=== PATIENT | female | born 1955 | race Hispanic/Latino ===

== ENCOUNTER → 2023-03-11 | Emergency (ER) | payer OTHER, SELFPAY ==
--- OUTSIDE RECORDS SUMMARY | 2023-03-11 11:13 | XMS REPORT | Continuity of Care Document ---
Author Name Unknown Address [address] [facility] [address] [place] [address] [facility] thconnect Address [address] [facility] [address] [place] [address] Care Team Providers Care [place] Name Role Phone RAMO ROBERTSON Primary Care Physician UnavailRamo Michelle Attending Clinician Unavailable [email or web address]_Kadiyala_S Attending Clinician Unavailyoel jones RADIOLOGY Attending Clinician Unavailable Radiology Attending Clinician Unavailable Flora Murray MD Attending Clinician + [phone] Elizabeth George RN Attending Clinician Unavailsandra stephens Doctor Unassigned, [place] Attending Clinician U navailable Pob, [facility] Main Attending Clinician UnavailVinita Duong DPM Attending Clinician [phone] VINITA GREENWOOD Attending Clinician Unavailable Tremaine Torres Attending Clinician [phone] TREMAINE PATTON Attending Clinician Unavailable Shaan Mayberry MD Attending Clinician [phone] ROSALINA DORANTES Attending Clinician UnavailRosalina Espinal MD Attending Clinician [phone] SHAAN MAYBERRY Attending Clinician Unavail able SHAAN MAYBERRY Attending Clinician Unavail able Lab, Ang - Db Attending Clinician Unavailable JELANI RESENDEZ Attending Clinician UnavailJelani Rdz MD Attending Clinician BENI STEVEN Attending Clinician Unavailable Beni Bianchi Attending Clinician [phone] FLORA MURRAY Attending Clinician JELANI Carrasco Attending Clinician Unavailsandra Lira, [facility] Health Maintenance Attending ALIREZA Connolly Attending Clinician Unavailable Yamil Patton Attending Clinician [phone] HUANG CHAVIS Attending Clinician Unavailable Huang Chavis MD Attending Clinician [phone] ([facility]), ANG-DB EMG/NCV TESTING Attending Jelani Salas MD Attending Clinician +- [phone] JELANI SAM Attending Clinician Alireza Yeboah MD Attending Clinician [phone] [facility] Uro Procedure Attending Clinician GWEN Wilson Attending Clinician Unavailable JELANI JOSHI Attending Clinician UnavailIRAJ Manzo Attending Clinician UnavailPRO Rock Attending Clinician Unavailable GC_GCBZW_Kadiyala_S Admitting Clinician UnavailTONE Hawkins Admitting Clinician UnavailDANIELLE Kingsley Admitting Clinician UnavailRAMO Michelle Admitting Clinician Unavailable ROSALINA DORANTES Admitting Clinician UnavailBENI Cisneros Admitting Clinician Unavailable FLORA MURRAY Admitting Clinician Vazquez sharma Payers Payer Name Policy Type Policy Number Effective Date Expirati on Date Source [facility] [place] - [place] - [place] - [place] - [place]MEDICARE REPLACEMENT/ADVANT AGE - HMO) [id number] [place] [id number] [facility] [id number] 2022 00:00:00 [place] [id number] 2022 00:00:00 Problems Condition Name Condition Details Condition Category Status Onset Date Resolution Date Last Treatment Date Treating Clinician Comments Source Rectal bleeding Rectal bleeding Disease Active 07-02 00:00: 00 [facility] Protein-ca justina malnutriti on, moderate Protein-ca justina malnutriti on, moderate Disease Active 2017-0 5-26 00:00: 00 [facility] 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 10-30 00:00: 00 [facility] Dry eye syndrome Dry eye syndrome Disease Active 10-30 00:00: 00 [facility] Melanosis Melanosis Disease Active 10-30 00:00: 00 [facility] Conjunctiv al melanosis; Rt eye > Lt Eye Conjunctiv al melanosis; Rt eye > Lt Eye Disease Active 10-30 00:00: 00 [facility] Lumbago Lumbago Disease Active 08-24 00:00: 00 [facility] Other problems of limbs Other problems of limbs Disease Active 08-24 00:00: 00 Overview: Formattin g of this note might be different from the original. Left leg gave out, pain in hands and left leg [facility] Pain in joint, hand Pain in joint, hand Disease Active 08-24 00:00: 00 [facility] Other general symptoms(7 80.99) Other general symptoms(7 80.99) Disease Active 08-24 00:00: 00 Overview: Formattin g of this note might be different from the original. Pain in left side [facility] Abnormalit y of gait Abnormalit y of gait Disease Active 08-24 00:00: 00 [facility] Lack of coordinati on Lack of coordinati on Disease Active 08-24 00:00: 00 [facility] Essential hypertensi on Hypertensi on, unspecifie d type Problem [facility] Hypokalemi a Hypokalemi a Problem [facility] Hyperlipid aemia Hyperlipid emia, unspecifie d hyperlipid emia type Problem [facility] [id number] Mixed hyperlipid emia Problem [facility] [id number] Adult BMI <19 kg/sq m Problem [facility] [id number] Dental caries extending into pulp Problem [facility] [id number] Weight loss, non-intent ional Problem [facility] [id number] Acute lower UTI Problem [facility] [id number] 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 [facility] [id number] Intrinsic sphincter deficiency (ISD) Problem [facility] [id number] Abnormal finding on breast imaging Problem [facility] [id number] Pre-proced ure lab exam Problem [facility] [id number] Pain of right breast Problem [facility] [id number] Cyst of right breast Problem [facility] Incontinen ce Incontinen ce Problem [facility] [id number] Urinary incontinen ce, unspecifie d type Problem [facility] [id number] Chronic pain syndrome Problem [facility] Multiple sclerosis Multiple sclerosis Problem [facility] Allergies, Adverse Reactions, Alerts Allergy Name Allergy Type Status Severity Reaction(s) Onset Date Inactive Date Treating Clinician Comments Source NO KNOWN ALLERGIE S Drug Class Active [facility] Social History Social Habit Start Date Stop Date Quantity Comments Source Gender identity [facility] Sexual orientation [facility] History of tobacco use Cigarette Smoker [facility] Sex Assigned At [facility] Alcohol intake 2022-09-16 00:00:00 2022-09-16 00:00:00 Current non-drinker of alcohol (finding) [facility] Exposure to SARS-CoV-2 (event) 2022-05-23 00:00:00 2022-06-02 07:22:00 Not sure [facility] History of Social function 2022-04-19 00:00:00 2022-04-19 00:00:00 [facility] Cigarettes smoked current (pack per day) - Reported 2021-09-14 00:00:00 2021-09-14 00:00:00 [facility] Cigarette pack-years 2021-09-14 00:00:00 2021-09-14 00:00:00 [facility] Tobacco use and exposure 2021-09-14 00:00:00 2021-09-14 00:00:00 Smokeless tobacco non-user [facility] Smoking Status Start Date Stop Date Source Unknown if ever smoked [facility]mo n [facility] Ex-smoker 2021-09-14 00:00:00 2021-09-14 00:00[facility]00 [facility] tobacco daily 2021-03-10 00:00:00 [facility] Medications Ordered Medication Name Filled Medication Name Start Date Stop Date Current Medication? Ordering Clinician Indication Dosage Frequency Signature (SIG) Comments Components Source ROSUVASTATI N 10 mg tablet 2022-02 00:00: 00 Yes TAKE 1 TABLET BY MOUTH EVERY MORNING [facility] ROSUVASTATI N 10 mg tablet 2022-02 00:00: 00 Yes TAKE 1 TABLET BY MOUTH EVERY MORNING [facility] ROSUVASTATI N 10 mg tablet 2022-02 00:00: 00 Yes TAKE 1 TABLET BY MOUTH EVERY MORNING [facility] ROSUVASTATI N 10 mg tablet 2022-02 00:00: 00 Yes TAKE 1 TABLET BY MOUTH EVERY MORNING [facility] ROSUVASTATI N 10 mg tablet 2022-02 00:00: 00 Yes TAKE 1 TABLET BY MOUTH EVERY MORNING [facility] ROSUVASTATI N 10 mg tablet 0 10-14 00:00: 00 Yes TAKE 1 TABLET BY MOUTH EVERY MORNING [facility] ROSUVASTATI N 10 mg tablet 2022-0 10-14 00:00: 00 Yes TAKE 1 TABLET BY MOUTH EVERY MORNING [facility] ROSUVASTATI N 10 mg tablet 0 10-14 00:00: 00 Yes TAKE 1 TABLET BY MOUTH EVERY MORNING [facility] ROSUVASTATI N 10 mg tablet 2022-0 10-14 00:00: 00 Yes TAKE 1 TABLET BY MOUTH EVERY MORNING [facility] ROSUVASTATI N 10 mg tablet 2022-0 10-14 00:00: 00 11-08 00:00 :00 No TAKE 1 TABLET BY MOUTH EVERY MORNING [facility] ROSUVASTATI N 10 mg tablet 09-13 00:00: 00 Yes TAKE 1 TABLET BY MOUTH EVERY MORNING [facility] ROSUVASTATI N 10 mg tablet 09-13 00:00: 00 Yes TAKE 1 TABLET BY MOUTH EVERY MORNING [facility] ROSUVASTATI N 10 mg tablet 09-13 00:00: 00 Yes TAKE 1 TABLET BY MOUTH EVERY MORNING [facility] ROSUVASTATI N 10 mg tablet 09-13 00:00: 00 Yes TAKE 1 TABLET BY MOUTH EVERY MORNING [facility] ROSUVASTATI N 10 mg tablet 09-13 00:00: 00 Yes TAKE 1 TABLET BY MOUTH EVERY MORNING [facility] ROSUVASTATI N 10 mg tablet 09-13 00:00: 00 Yes TAKE 1 TABLET BY MOUTH EVERY MORNING [facility] ROSUVASTATI N 10 mg tablet 09-13 00:00: 00 10-14 00:00 :00 No TAKE 1 TABLET BY MOUTH EVERY MORNING [facility] baclofen 10 mg tablet 09-10 15:36: 02 09-10 00:00 :00 No 10mg Take 10 mg by mouth 3 (three) times daily. [facility] gabapentin 600 mg tablet 09-10 00:00: 00 Yes [id number] 600mg Take 1 tablet by mouth in the morning and 1 tablet at noon and 1 tablet in the evening. [facility] ofatumumab (KESIMPTA PEN) 20 mg/0.4 mL PnIj 09-10 00:00: 00 Yes [id number] 20mg inject 20 mg under the skin once every month. [facility] baclofen 10 mg tablet 09-10 00:00: 00 Yes [id number] 10mg Take 1 tablet by mouth in the morning and 1 tablet at noon and 1 tablet in the evening. [facility] gabapentin 600 mg tablet 09-10 00:00: 00 Yes [id number] 600mg Take 1 tablet by mouth in the morning and 1 tablet at noon and 1 tablet in the evening. [facility] ofatumumab (KESIMPTA PEN) 20 mg/0.4 mL PnIj 2023-0 8- 00:00: 00 Yes [id number] 20mg inject 20 mg under the skin once every month. [facility] baclofen 10 mg tablet 2022-0 8- 00:00: 00 Yes [id number] 10mg Take 1 tablet by mouth in the morning and 1 tablet at noon and 1 tablet in the evening. [facility] gabapentin 600 mg tablet 2022-0 8- 00:00: 00 Yes [id number] 600mg Take 1 tablet by mouth in the morning and 1 tablet at noon and 1 tablet in the evening. [facility] ofatumumab (KESIMPTA PEN) 20 mg/0.4 mL PnIj 3-0 8- 00:00: 00 Yes [id number] 20mg inject 20 mg under the skin once every month. [facility] baclofen 10 mg tablet 2022-0 8- 00:00: 00 Yes [id number] 10mg Take 1 tablet by mouth in the morning and 1 tablet at noon and 1 tablet in the evening. [facility] gabapentin 600 mg tablet 2022-0 8- 00:00: 00 Yes [id number] 600mg Take 1 tablet by mouth in the morning and 1 tablet at noon and 1 tablet in the evening. [facility] ofatumumab (KESIMPTA PEN) 20 mg/0.4 mL PnIj 3-0 8- 00:00: 00 Yes [id number] 20mg inject 20 mg under the skin once every month. [facility] baclofen 10 mg tablet 2022-0 8- 00:00: 00 Yes [id number] 10mg Take 1 tablet by mouth in the morning and 1 tablet at noon and 1 tablet in the evening. [facility] gabapentin 600 mg tablet 3-0 8- 00:00: 00 Yes [id number] 600mg Take 1 tablet by mouth in the morning and 1 tablet at noon and 1 tablet in the evening. [facility] ofatumumab (KESIMPTA PEN) 20 mg/0.4 mL PnIj 2023-0 8-04 00:00: 00 Yes [id number] 20mg inject 20 mg under the skin once every month. [facility] baclofen 10 mg tablet 2022-0 8- 00:00: 00 Yes [id number] 10mg Take 1 tablet by mouth in the morning and 1 tablet at noon and 1 tablet in the evening. [facility] gabapentin 600 mg tablet 2022-0 8- 00:00: 00 Yes [id number] 600mg Take 1 tablet by mouth in the morning and 1 tablet at noon and 1 tablet in the evening. [facility] ofatumumab (KESIMPTA PEN) 20 mg/0.4 mL PnIj 3-0 8- 00:00: 00 Yes [id number] 20mg inject 20 mg under the skin once every month. [facility] baclofen 10 mg tablet 2022-0 8- 00:00: 00 Yes [id number] 10mg Take 1 tablet by mouth in the morning and 1 tablet at noon and 1 tablet in the evening. [facility] gabapentin 600 mg tablet 2022-0 - 00:00: 00 Yes [id number] 600mg Take 1 tablet by mouth in the morning and 1 tablet at noon and 1 tablet in the evening. [facility] ofatumumab (KESIMPTA PEN) 20 mg/0.4 mL PnIj 2022-0 09-10 00:00: 00 Yes [id number] 20mg inject 20 mg under the skin once every month. [facility] baclofen 10 mg tablet 2022-0 - 00:00: 00 Yes [id number] 10mg Take 1 tablet by mouth in the morning and 1 tablet at noon and 1 tablet in the evening. [facility] gabapentin 600 mg tablet 3-0 8-04 00:00: 00 Yes [id number] 600mg Take 1 tablet by mouth in the morning and 1 tablet at noon and 1 tablet in the evening. [facility] ofatumumab (KESIMPTA PEN) 20 mg/0.4 mL PnIj 3-0 8-04 00:00: 00 Yes [id number] 20mg inject 20 mg under the skin once every month. [facility] baclofen 10 mg tablet 3-0 8-04 00:00: 00 Yes [id number] 10mg Take 1 tablet by mouth in the morning and 1 tablet at noon and 1 tablet in the evening. [facility] gabapentin 600 mg tablet 2022-0 8 00:00: 00 Yes [id number] 600mg Take 1 tablet by mouth in the morning and 1 tablet at noon and 1 tablet in the evening. [facility] ofatumumab (KESIMPTA PEN) 20 mg/0.4 mL PnIj 3-0 09-10 00:00: 00 Yes [id number] 20mg inject 20 mg under the skin once every month. [facility] baclofen 10 mg tablet 2022-0 09-10 00:00: 00 Yes [id number] 10mg Take 1 tablet by mouth in the morning and 1 tablet at noon and 1 tablet in the evening. [facility] gabapentin 600 mg tablet 2022-0 09-10 00:00: 00 Yes [id number] 600mg Take 1 tablet by mouth in the morning and 1 tablet at noon and 1 tablet in the evening. [facility] ofatumumab (KESIMPTA PEN) 20 mg/0.4 mL PnIj 3-0 09-10 00:00: 00 Yes [id number] 20mg inject 20 mg under the skin once every month. [facility] baclofen 10 mg tablet 2022-0 09-10 00:00: 00 Yes [id number] 10mg Take 1 tablet by mouth in the morning and 1 tablet at noon and 1 tablet in the evening. [facility] gabapentin 600 mg tablet 2022-0 09-10 00:00: 00 Yes [id number] 600mg Take 1 tablet by mouth in the morning and 1 tablet at noon and 1 tablet in the evening. [facility] ofatumumab (KESIMPTA PEN) 20 mg/0.4 mL PnIj 3-0 8 00:00: 00 Yes [id number] 20mg inject 20 mg under the skin once every month. [facility] baclofen 10 mg tablet 3-0 8-04 00:00: 00 Yes [id number] 10mg Take 1 tablet by mouth in the morning and 1 tablet at noon and 1 tablet in the evening. [facility] gabapentin 600 mg tablet 3-0 8-04 00:00: 00 Yes [id number] 600mg Take 1 tablet by mouth in the morning and 1 tablet at noon and 1 tablet in the evening. [facility] ofatumumab (KESIMPTA PEN) 20 mg/0.4 mL PnIj 2023-0 8-04 00:00: 00 Yes [id number] 20mg inject 20 mg under the skin once every month. [facility] baclofen 10 mg tablet 3-0 8-04 00:00: 00 Yes [id number] 10mg Take 1 tablet by mouth in the morning and 1 tablet at noon and 1 tablet in the evening. [facility] gabapentin 600 mg tablet 2022-0 8-04 00:00: 00 Yes [id number] 600mg Take 1 tablet by mouth in the morning and 1 tablet at noon and 1 tablet in the evening. [facility] ofatumumab (KESIMPTA PEN) 20 mg/0.4 mL PnIj 3-0 8- 00:00: 00 Yes [id number] 20mg inject 20 mg under the skin once every month. [facility] baclofen 10 mg tablet 3-0 8-04 00:00: 00 Yes [id number] 10mg Take 1 tablet by mouth in the morning and 1 tablet at noon and 1 tablet in the evening. [facility] gabapentin 600 mg tablet 3-0 8-04 00:00: 00 Yes [id number] 600mg Take 1 tablet by mouth in the morning and 1 tablet at noon and 1 tablet in the evening. [facility] ofatumumab (KESIMPTA PEN) 20 mg/0.4 mL PnIj 3-0 8-04 00:00: 00 Yes [id number] 20mg inject 20 mg under the skin once every month. [facility] baclofen 10 mg tablet 3-0 8-04 00:00: 00 Yes [id number] 10mg Take 1 tablet by mouth in the morning and 1 tablet at noon and 1 tablet in the evening. [facility] gabapentin 600 mg tablet 3-0 8-04 00:00: 00 Yes [id number] 600mg Take 1 tablet by mouth in the morning and 1 tablet at noon and 1 tablet in the evening. [facility] ofatumumab (KESIMPTA PEN) 20 mg/0.4 mL PnIj 2022-0 09-10 00:00: 00 Yes [id number] 20mg inject 20 mg under the skin once every month. [facility] baclofen 10 mg tablet 2022-0 09-10 00:00: 00 Yes [id number] 10mg Take 1 tablet by mouth in the morning and 1 tablet at noon and 1 tablet in the evening. [facility] gabapentin 600 mg tablet 2022-0 09-10 00:00: 00 Yes [id number] 600mg Take 1 tablet by mouth in the morning and 1 tablet at noon and 1 tablet in the evening. [facility] ofatumumab (KESIMPTA PEN) 20 mg/0.4 mL PnIj 2022-0 09-10 00:00: 00 Yes [id number] 20mg inject 20 mg under the skin once every month. [facility] baclofen 10 mg tablet 2022-0 09-10 00:00: 00 Yes [id number] 10mg Take 1 tablet by mouth in the morning and 1 tablet at noon and 1 tablet in the evening. [facility] gabapentin 600 mg tablet 2022-0 09-10 00:00: 00 Yes [id number] 600mg Take 1 tablet by mouth in the morning and 1 tablet at noon and 1 tablet in the evening. [facility] ofatumumab (KESIMPTA PEN) 20 mg/0.4 mL PnIj 2022-0 09-10 00:00: 00 Yes [id number] 20mg inject 20 mg under the skin once every month. [facility] baclofen 10 mg tablet 2022-0 04 00:00: 00 Yes [id number] 10mg Take 1 tablet by mouth in the morning and 1 tablet at noon and 1 tablet in the evening. [facility] ROSUVASTATI N 10 mg tablet 2022-0 7-10 00:00: 00 Yes TAKE 1 TABLET BY MOUTH EVERY MORNING [facility] ROSUVASTATI N 10 mg tablet 2022-0 7-10 00:00: 00 Yes TAKE 1 TABLET BY MOUTH EVERY MORNING [facility] ROSUVASTATI N 10 mg tablet 2022-0 7-10 00:00: 00 Yes TAKE 1 TABLET BY MOUTH EVERY MORNING [facility] ROSUVASTATI N 10 mg tablet 2022-0 7-10 00:00: 00 Yes TAKE 1 TABLET BY MOUTH EVERY MORNING [facility] ROSUVASTATI N 10 mg tablet 2022-0 7-10 00:00: 00 Yes TAKE 1 TABLET BY MOUTH EVERY MORNING [facility] ROSUVASTATI N 10 mg tablet 2022-0 7-10 00:00: 00 09-13 00:00 :00 No TAKE 1 TABLET BY MOUTH EVERY MORNING [facility] rosuvastati n 10 mg tablet 2022-0 07-14 00:00: 00 Yes 10mg TAKE 1 TABLET BY MOUTH IN THE MORNING. [facility] rosuvastati n 10 mg tablet 2022-0 07-14 00:00: 00 Yes 10mg TAKE 1 TABLET BY MOUTH IN THE MORNING. [facility] rosuvastati n 10 mg tablet 2022-0 07-14 00:00: 00 Yes 10mg TAKE 1 TABLET BY MOUTH IN THE MORNING. [facility] rosuvastati n 10 mg tablet 2022-0 07-14 00:00: 00 08-16 00:00 :00 No 10mg TAKE 1 TABLET BY MOUTH IN THE MORNING. [facility] ofatumumab (KESIMPTA PEN) 20 mg/0.4 mL PnIj 3-0 05 00:00: 00 Yes [id number] 20mg inject 20 mg under the skin once every month. [facility] ofatumumab (KESIMPTA PEN) 20 mg/0.4 mL PnIj 3-0 - 00:00: 00 Yes [id number] 20mg inject 20 mg under the skin once every month. [facility] ofatumumab (KESIMPTA PEN) 20 mg/0.4 mL PnIj 2023-0 07-12 00:00: 00 Yes [id number] 20mg inject 20 mg under the skin once every month. [facility] ofatumumab (KESIMPTA PEN) 20 mg/0.4 mL PnIj 3-0 6-05 00:00: 00 Yes [id number] 20mg inject 20 mg under the skin once every month. [facility]EN[facility] 20 mg/0.4 mL PnIj 2023-0 6-05 00:00: 00 Yes [id number] 20mg inject 20 mg under the skin once every month. [facility] ofatumumab (KESIMPTA PEN) 20 mg/0.4 mL PnIj 2023-0 6-05 00:00: 00 Yes [id number] 20mg inject 20 mg under the skin once every month. [facility] ofatumumab (KESIMPTA PEN) 20 mg/0.4 mL PnIj 2023-0 6-05 00:00: 00 Yes [id number] 20mg inject 20 mg under the skin once every month. [facility] ofatumumab (KESIMPTA PEN) 20 mg/0.4 mL PnIj 2023-0 6- 00:00: 00 Yes [id number] 20mg inject 20 mg under the skin once every month. [facility] ofatumumab (KESIMPTA PEN) 20 mg/0.4 mL PnIj 2023-0 6-05 00:00: 00 Yes [id number] 20mg inject 20 mg under the skin once every month. [facility] ofatumumab (KESIMPTA PEN) 20 mg/0.4 mL PnIj 2023-0 6- 00:00: 00 09-10 00:00 :00 No [id number] 20mg inject 20 mg under the skin once every month. [facility] Sulfamethox azole-Trime thoprim 800-160 MG Sulfamethox azole-Trime thoprim 800-160 MG 3-0 3-25 00:00: 00 No 1{table t} BID Sulfametho xazole-Tri methoprim 800-160 MG Sulfamethox azole-Trime thoprim 800-160 MG Sulfamethox azole-Trime thoprim 800-160 MG 3-0 3-25 00:00: 00 No 1{table t} BID Sulfametho xazole-Tri methoprim 800-160 MG Sulfamethox azole-Trime thoprim 800-160 MG Sulfamethox azole-Trime thoprim 800-160 MG 3-0 3-25 00:00: 00 No 1{table t} BID Sulfametho xazole-Tri methoprim 800-160 MG Sulfamethox azole-Trime thoprim 800-160 MG Sulfamethox azole-Trime thoprim 800-160 MG 3-0 3-25 00:00: 00 No 1{table t} BID Sulfametho xazole-Tri methoprim 800-160 MG Sulfamethox azole-Trime thoprim 800-160 MG Sulfamethox azole-Trime thoprim 800-160 MG 2023-0 325 00:00: 00 No 1{table t} BID Sulfametho xazole-Tri methoprim 800-160 MG ROSUVASTATI N 10 mg tablet 2022-0 -16 00:00: 00 Yes 10mg TAKE 1 TABLET BY MOUTH IN THE MORNING. [facility] gabapentin 600 mg tablet 2022-0 316 00:00: 00 Yes [id number] 600mg Take 1 tablet by mouth in the morning and 1 tablet at noon and 1 tablet in the evening. [facility] gabapentin 600 mg tablet 3-0 16 00:00: 00 Yes [id number] 600mg Take 1 tablet by mouth in the morning and 1 tablet at noon and 1 tablet in the evening. [facility] ROSUVASTATI N 10 mg tablet 2022-0 16 00:00: 00 Yes 10mg TAKE 1 TABLET BY MOUTH IN THE MORNING. [facility] gabapentin 600 mg tablet 3-0 316 00:00: 00 Yes [id number] 600mg Take 1 tablet by mouth in the morning and 1 tablet at noon and 1 tablet in the evening. [facility] ROSUVASTATI N 10 mg tablet 3-0 316 00:00: 00 Yes 10mg TAKE 1 TABLET BY MOUTH IN THE MORNING. [facility] gabapentin 600 mg tablet 3-0 3-16 00:00: 00 Yes [id number] 600mg Take 1 tablet by mouth in the morning and 1 tablet at noon and 1 tablet in the evening. [facility] ROSUVASTATI N 10 mg tablet 2023-0 3-16 00:00: 00 Yes 10mg TAKE 1 TABLET BY MOUTH IN THE MORNING. [facility] gabapentin 600 mg tablet 3-0 3-16 00:00: 00 Yes [id number] 600mg Take 1 tablet by mouth in the morning and 1 tablet at noon and 1 tablet in the evening. [facility] ROSUVASTATI N 10 mg tablet 3-0 3-16 00:00: 00 Yes 10mg TAKE 1 TABLET BY MOUTH IN THE MORNING. [facility] gabapentin 600 mg tablet 3-0 3-16 00:00: 00 Yes [id number] 600mg Take 1 tablet by mouth in the morning and 1 tablet at noon and 1 tablet in the evening. [facility] gabapentin 600 mg tablet 3-0 3-16 00:00: 00 Yes [id number] 600mg Take 1 tablet by mouth in the morning and 1 tablet at noon and 1 tablet in the evening. [facility] gabapentin 600 mg tablet 3-0 3-16 00:00: 00 Yes [id number] 600mg Take 1 tablet by mouth in the morning and 1 tablet at noon and 1 tablet in the evening. [facility] gabapentin 600 mg tablet 3-0 3-16 00:00: 00 Yes [id number] 600mg Take 1 tablet by mouth in the morning and 1 tablet at noon and 1 tablet in the evening. [facility] gabapentin 600 mg tablet 3-0 3-16 00:00: 00 Yes [id number] 600mg Take 1 tablet by mouth in the morning and 1 tablet at noon and 1 tablet in the evening. [facility] gabapentin 600 mg tablet 3-0 3-16 00:00: 00 Yes [id number] 600mg Take 1 tablet by mouth in the morning and 1 tablet at noon and 1 tablet in the evening. [facility] gabapentin 600 mg tablet 2023-0 3-16 00:00: 00 Yes [id number] 600mg Take 1 tablet by mouth in the morning and 1 tablet at noon and 1 tablet in the evening. [facility] gabapentin 600 mg tablet 2023-0 3-16 00:00: 00 Yes [id number] 600mg Take 1 tablet by mouth in the morning and 1 tablet at noon and 1 tablet in the evening. [facility] gabapentin 600 mg tablet 2022-0 3-16 00:00: 00 09-10 00:00 :00 No [id number] 600mg Take 1 tablet by mouth in the morning and 1 tablet at noon and 1 tablet in the evening. [facility] ROSUVASTATI N 10 mg tablet 2022-0 3-16 00:00: 00 07-14 00:00 :00 No 10mg TAKE 1 TABLET BY MOUTH IN THE MORNING. [facility] ROSUVASTATI N 10 mg tablet 2022-0 3-16 00:00: 00 07-14 00:00 :00 No 10mg TAKE 1 TABLET BY MOUTH IN THE MORNING. [facility] ROSUVASTATI N 10 mg tablet 2022-0 3-16 00:00: 00 07-14 00:00 :00 No 10mg TAKE 1 TABLET BY MOUTH IN THE MORNING. [facility] gabapentin 600 mg tablet 2022-0 3-13 00:00: 00 Yes [id number] 600mg Take 1 tablet by mouth in the morning and 1 tablet at noon and 1 tablet in the evening. [facility] gabapentin 600 mg tablet 2022-0 3-13 00:00: 00 04-22 00:00 :00 No [id number] 600mg Take 1 tablet by mouth in the morning and 1 tablet at noon and 1 tablet in the evening. [facility] gabapentin 600 mg tablet 2022-0 3-13 00:00: 00 04-22 00:00 :00 No 600mg Take 1 tablet by mouth in the morning and 1 tablet at noon and 1 tablet in the evening. [facility] gabapentin 600 mg tablet 2022-0 3-13 00:00: 00 04-22 00:00 :00 No 600mg Take 1 tablet by mouth in the morning and 1 tablet at noon and 1 tablet in the evening. [facility] HYDROcodone -acetaminop hen (NORCO 5) 5-325 mg tablet 1 tablet 2-28 14:46: 00 04-06 15:22 :00 No 1{tbl} 1 tablet, Oral, ONCE, 1 dose, On Tue04/06/22 at 0900, IMANI [facility] carBAMazepi ne 100 mg 12 hr tablet 2023-0 2-10 00:00: 00 Yes [id number] 100mg Take 1 tablet by mouth in the morning and 1 tablet in the evening. [facility] ofatumumab (KESIMPTA PEN) 20 mg/0.4 mL PnIj 2023-0 2-10 00:00: 00 Yes [id number] 20mg inject 20 mg under the skin once every month. [facility] carBAMazepi ne 100 mg 12 hr tablet 2023-0 2-10 00:00: 00 Yes [id number] 100mg Take 1 tablet by mouth in the morning and 1 tablet in the evening. [facility] ofatumumab (KESIMPTA PEN) 20 mg/0.4 mL PnIj 2023-0 2-10 00:00: 00 Yes [id number] 20mg inject 20 mg under the skin once every month. [facility] carBAMazepi ne 100 mg 12 hr tablet 2023-0 2-10 00:00: 00 Yes [id number] 100mg Take 1 tablet by mouth in the morning and 1 tablet in the evening. [facility] ofatumumab (KESIMPTA PEN) 20 mg/0.4 mL PnIj 2023-0 2-10 00:00: 00 Yes [id number] 20mg inject 20 mg under the skin once every month. [facility] carBAMazepi ne 100 mg 12 hr tablet 2023-0 2-10 00:00: 00 Yes [id number] 100mg Take 1 tablet by mouth in the morning and 1 tablet in the evening. [facility] ofatumumab (KESIMPTA PEN) 20 mg/0.4 mL PnIj 2023-0 2-10 00:00: 00 Yes [id number] 20mg inject 20 mg under the skin once every month. [facility] carBAMazepi ne 100 mg 12 hr tablet 2023-0 2-10 00:00: 00 Yes [id number] 100mg Take 1 tablet by mouth in the morning and 1 tablet in the evening. [facility] ofatumumab (KESIMPTA PEN) 20 mg/0.4 mL PnIj 2023-0 2-10 00:00: 00 Yes [id number] 20mg inject 20 mg under the skin once every month. [facility] carBAMazepi ne 100 mg 12 hr tablet 2023-0 2-10 00:00: 00 Yes [id number] 100mg Take 1 tablet by mouth in the morning and 1 tablet in the evening. [facility] ofatumumab (KESIMPTA PEN) 20 mg/0.4 mL PnIj 2023-0 2-10 00:00: 00 Yes [id number] 20mg inject 20 mg under the skin once every month. [facility] carBAMazepi ne 100 mg 12 hr tablet 2023-0 2-10 00:00: 00 Yes [id number] 100mg Take 1 tablet by mouth in the morning and 1 tablet in the evening. [facility] ofatumumab (KESIMPTA PEN) 20 mg/0.4 mL PnIj 2023-0 2-10 00:00: 00 Yes [id number] 20mg inject 20 mg under the skin once every month. [facility] carBAMazepi ne 100 mg 12 hr tablet 3-0 2-10 00:00: 00 Yes [id number] 100mg Take 1 tablet by mouth in the morning and 1 tablet in the evening. [facility] ofatumumab (KESIMPTA PEN) 20 mg/0.4 mL PnIj 2023-0 2-10 00:00: 00 Yes [id number] 20mg inject 20 mg under the skin once every month. [facility] carBAMazepi ne 100 mg 12 hr tablet 2023-0 2-10 00:00: 00 Yes [id number] 100mg Take 1 tablet by mouth in the morning and 1 tablet in the evening. [facility] ofatumumab (KESIMPTA PEN) 20 mg/0.4 mL PnIj 2023-0 2-10 00:00: 00 Yes [id number] 20mg inject 20 mg under the skin once every month. [facility] carBAMazepi ne 100 mg 12 hr tablet 2023-0 2-10 00:00: 00 Yes [id number] 100mg Take 1 tablet by mouth in the morning and 1 tablet in the evening. [facility]A PEN[facility] 20 mg/0.4 mL PnIj 2023-0 2-10 00:00: 00 Yes [id number] 20mg inject 20 mg under the skin once every month. [facility] carBAMazepi ne 100 mg 12 hr tablet 2023-0 2-10 00:00: 00 Yes [id number] 100mg Take 1 tablet by mouth in the morning and 1 tablet in the evening. [facility] ofatumumab (KESIMPTA PEN) 20 mg/0.4 mL PnIj 2023-0 2-10 00:00: 00 Yes [id number] 20mg inject 20 mg under the skin once every month. [facility] carBAMazepi ne 100 mg 12 hr tablet 2023-0 2-10 00:00: 00 Yes [id number] 100mg Take 1 tablet by mouth in the morning and 1 tablet in the evening. [facility] ofatumumab (KESIMPTA PEN) 20 mg/0.4 mL PnIj 2023-0 2-10 00:00: 00 Yes [id number] 20mg inject 20 mg under the skin once every month. [facility] carBAMazepi ne 100 mg 12 hr tablet 3-0 2-10 00:00: 00 Yes [id number] 100mg Take 1 tablet by mouth in the morning and 1 tablet in the evening. [facility] ofatumumab (KESIMPTA PEN) 20 mg/0.4 mL PnIj 2023-0 2-10 00:00: 00 Yes [id number] 20mg inject 20 mg under the skin once every month. [facility] carBAMazepi ne 100 mg 12 hr tablet 2023-0 2-10 00:00: 00 Yes [id number] 100mg Take 1 tablet by mouth in the morning and 1 tablet in the evening. [facility] ofatumumab (KESIMPTA PEN) 20 mg/0.4 mL PnIj 2023-0 2-10 00:00: 00 Yes [id number] 20mg inject 20 mg under the skin once every month. [facility] carBAMazepi ne 100 mg 12 hr tablet 2023-0 2-10 00:00: 00 Yes [id number] 100mg Take 1 tablet by mouth in the morning and 1 tablet in the evening. [facility] carBAMazepi ne 100 mg 12 hr tablet 2023-0 2-10 00:00: 00 Yes [id number] 100mg Take 1 tablet by mouth in the morning and 1 tablet in the evening. [facility] carBAMazepi ne 100 mg 12 hr tablet 2023-0 2-10 00:00: 00 Yes [id number] 100mg Take 1 tablet by mouth in the morning and 1 tablet in the evening. [facility] carBAMazepi ne 100 mg 12 hr tablet 3-0 2-10 00:00: 00 Yes [id number] 100mg Take 1 tablet by mouth in the morning and 1 tablet in the evening. [facility] carBAMazepi ne 100 mg 12 hr tablet 2023-0 2-10 00:00: 00 Yes [id number] 100mg Take 1 tablet by mouth in the morning and 1 tablet in the evening. [facility] carBAMazepi ne 100 mg 12 hr tablet 3-0 2-10 00:00: 00 Yes [id number] 100mg Take 1 tablet by mouth in the morning and 1 tablet in the evening. [facility] carBAMazepi ne 100 mg 12 hr tablet 3-0 2-10 00:00: 00 Yes [id number] 100mg Take 1 tablet by mouth in the morning and 1 tablet in the evening. [facility] carBAMazepi ne 100 mg 12 hr tablet 3-0 2-10 00:00: 00 Yes [id number] 100mg Take 1 tablet by mouth in the morning and 1 tablet in the evening. [facility] carBAMazepi ne 100 mg 12 hr tablet 2023-0 2-10 00:00: 00 Yes [id number] 100mg Take 1 tablet by mouth in the morning and 1 tablet in the evening. [facility] carBAMazepi ne 100 mg 12 hr tablet 2023-0 2-10 00:00: 00 202-04 00:00 :00 No [id number] 100mg Take 1 tablet by mouth in the morning and 1 tablet in the evening. [facility] ofatumumab (KESIMPTA PEN) 20 mg/0.4 mL PnIj 3-0 2-10 00:00: 00 07-12 00:00 :00 No [id number] 20mg inject 20 mg under the skin once every month. [facility] ofatumumab (KESIMPTA PEN) 20 mg/0.4 mL PnIj 3-0 2-10 00:00: 00 07-12 00:00 :00 No [id number] 20mg inject 20 mg under the skin once every month. [facility] rosuvastati n 10 mg tablet 2021-02 0-03 00:00: 00 Yes 10mg Take 1 tablet by mouth in the morning. [facility] rosuvastati n 10 mg tablet 2021-02 0- 00:00: 00 Yes 10mg Take 1 tablet by mouth in the morning. [facility] rosuvastati n 10 mg tablet 2021-02 0- 00:00: 00 Yes 10mg Take 1 tablet by mouth in the morning. [facility] rosuvastati n 10 mg tablet 2021-02 0- 00:00: 00 Yes 10mg Take 1 tablet by mouth in the morning. [facility] rosuvastati n 10 mg tablet 2021-02 0- 00:00: 00 Yes 10mg Take 1 tablet by mouth in the morning. [facility] rosuvastati n 10 mg tablet 2021-02 0-03 00:00: 00 Yes 10mg Take 1 tablet by mouth in the morning. [facility] rosuvastati n 10 mg tablet 2021-02 0-03 00:00: 00 Yes 10mg Take 1 tablet by mouth in the morning. [facility] rosuvastati n 10 mg tablet 2021-02 0-03 00:00: 00 Yes 10mg Take 1 tablet by mouth in the morning. [facility] rosuvastati n 10 mg tablet 2021-02 0-03 00:00: 00 Yes 10mg Take 1 tablet by mouth in the morning. [facility] rosuvastati n 10 mg tablet 2021-02 0-03 00:00: 00 Yes 10mg Take 1 tablet by mouth in the morning. [facility] rosuvastati n 10 mg tablet 2021- 0-03 00:00: 00 Yes 10mg Take 1 tablet by mouth in the morning. [facility] rosuvastati n 10 mg tablet 2021- 0-03 00:00: 00 Yes 10mg Take 1 tablet by mouth in the morning. [facility] rosuvastati n 10 mg tablet 2021-02 0-03 00:00: 00 Yes 10mg Take 1 tablet by mouth in the morning. [facility] rosuvastati n 10 mg tablet 2021- 0-03 00:00: 00 Yes 10mg Take 1 tablet by mouth in the morning. [facility] rosuvastati n 10 mg tablet 2021- 0-03 00:00: 00 Yes 10mg Take 1 tablet by mouth in the morning. [facility] rosuvastati n 10 mg tablet 2021- 0-03 00:00: 00 Yes 10mg Take 1 tablet by mouth in the morning. [facility] rosuvastati n 10 mg tablet 2021- 0-03 00:00: 00 Yes 10mg Take 1 tablet by mouth in the morning. [facility] rosuvastati n 10 mg tablet 2021- 0-03 00:00: 00 Yes 10mg Take 1 tablet by mouth in the morning. [facility] rosuvastati n 10 mg tablet 2021- 0-03 00:00: 00 Yes 10mg Take 1 tablet by mouth in the morning. [facility] rosuvastati n 10 mg tablet 2021- 0-03 00:00: 00 04-22 00:00 :00 No 10mg Take 1 tablet by mouth in the morning. [facility] rosuvastati n 10 mg tablet 2021- 0-03 00:00: 00 04-22 00:00 :00 No 10mg Take 1 tablet by mouth in the morning. [facility] rosuvastati n 10 mg tablet 2021- 0-03 00:00: 00 04-22 00:00 :00 No 10mg Take 1 tablet by mouth in the morning. [facility] traMADoL 50 mg tablet 10-28 00:00: 00 11-05 04:59 :00 No [id number] 50mg Take 1 tablet by mouth every 6 (six) hours as needed for Pain (scale 4-6) for up to 7 days. Indication s: acute pain [facility] traMADoL 50 mg tablet 10-28 00:00: 00 11-05 04:59 :00 No [id number] 50mg Take 1 tablet by mouth every 6 (six) hours as needed for Pain (scale 4-6) for up to 7 days. Indication s: acute pain [facility] traMADoL 50 mg tablet 10-28 00:00: 00 11-05 04:59 :00 No [id number] 50mg Take 1 tablet by mouth every 6 (six) hours as needed for Pain (scale 4-6) for up to 7 days. Indication s: acute pain [facility] ROSUVASTATI N 10 mg tablet 2021-0 10-20 00:00: 00 Yes TAKE 1 TABLET BY MOUTH EVERY DAY [facility] ROSUVASTATI N 10 mg tablet 2021-0 10-20 00:00: 00 Yes TAKE 1 TABLET BY MOUTH EVERY DAY [facility] ROSUVASTATI N 10 mg tablet 2021-0 10-20 00:00: 00 Yes TAKE 1 TABLET BY MOUTH EVERY DAY [facility] ROSUVASTATI N 10 mg tablet 2021-0 10-20 00:00: 00 Yes TAKE 1 TABLET BY MOUTH EVERY DAY [facility] ROSUVASTATI N 10 mg tablet 2021-0 10-20 00:00: 00 Yes TAKE 1 TABLET BY MOUTH EVERY DAY [facility] ROSUVASTATI N 10 mg tablet 2021-0 10-20 00:00: 00 Yes TAKE 1 TABLET BY MOUTH EVERY DAY [facility] ROSUVASTATI N 10 mg tablet 2021-0 10-20 00:00: 00 Yes TAKE 1 TABLET BY MOUTH EVERY DAY [facility] ROSUVASTATI N 10 mg tablet 10-20 00:00: 00 Yes TAKE 1 TABLET BY MOUTH EVERY DAY [facility] ROSUVASTATI N 10 mg tablet 10-20 00:00: 00 Yes TAKE 1 TABLET BY MOUTH EVERY DAY [facility] ROSUVASTATI N 10 mg tablet 10-20 00:00: 00 Yes TAKE 1 TABLET BY MOUTH EVERY DAY [facility] ROSUVASTATI N 10 mg tablet 10-20 00:00: 00 11-09 00:00 :00 No TAKE 1 TABLET BY MOUTH EVERY DAY [facility] traMADoL 50 mg tablet 10-07 00:00: 00 10-15 04:59 :00 No [id number] 50mg Take 1 tablet by mouth every 6 (six) hours as needed for Pain (scale 4-6) for up to 7 days. Indication s: acute pain [facility] traMADoL 50 mg tablet 10-07 00:00: 00 10-15 04:59 :00 No [id number] 50mg Take 1 tablet by mouth every 6 (six) hours as needed for Pain (scale 4-6) for up to 7 days. Indication s: acute pain [facility] ALPRAZOLAM 0.5 mg tablet 10-01 00:00: 00 Yes [id number] TAKE 1 TABLET BY MOUTH EVERY DAY NEEDED FOR ANXIETY [facility] ALPRAZOLAM 0.5 mg tablet 2021-0 10-01 00:00: 00 Yes [id number] TAKE 1 TABLET BY MOUTH EVERY DAY NEEDED FOR ANXIETY [facility] ALPRAZOLAM 0.5 mg tablet 2021-0 10-01 00:00: 00 Yes [id number] TAKE 1 TABLET BY MOUTH EVERY DAY NEEDED FOR ANXIETY [facility] ALPRAZOLAM 0.5 mg tablet 2021-0 10-01 00:00: 00 Yes [id number] TAKE 1 TABLET BY MOUTH EVERY DAY NEEDED FOR ANXIETY [facility] ALPRAZOLAM 0.5 mg tablet 2021-0 10-01 00:00: 00 Yes [id number] TAKE 1 TABLET BY MOUTH EVERY DAY NEEDED FOR ANXIETY [facility] ALPRAZOLAM 0.5 mg tablet 2021-0 10-01 00:00: 00 Yes [id number] TAKE 1 TABLET BY MOUTH EVERY DAY NEEDED FOR ANXIETY [facility] ALPRAZOLAM 0.5 mg tablet 2021-0 10-01 00:00: 00 Yes [id number] TAKE 1 TABLET BY MOUTH EVERY DAY NEEDED FOR ANXIETY [facility] ALPRAZOLAM 0.5 mg tablet 2-0 10-01 00:00: 00 Yes [id number] TAKE 1 TABLET BY MOUTH EVERY DAY NEEDED FOR ANXIETY [facility] ALPRAZOLAM 0.5 mg tablet 2021-0 10-01 00:00: 00 Yes [id number] TAKE 1 TABLET BY MOUTH EVERY DAY NEEDED FOR ANXIETY [facility] ALPRAZOLAM 0.5 mg tablet 2021-0 10-01 00:00: 00 Yes [id number] TAKE 1 TABLET BY MOUTH EVERY DAY NEEDED FOR ANXIETY [facility] ALPRAZOLAM 0.5 mg tablet 2021-0 10-01 00:00: 00 Yes [id number] TAKE 1 TABLET BY MOUTH EVERY DAY NEEDED FOR ANXIETY [facility] ALPRAZOLAM 0.5 mg tablet 2021-0 10-01 00:00: 00 Yes [id number] TAKE 1 TABLET BY MOUTH EVERY DAY NEEDED FOR ANXIETY [facility] ALPRAZOLAM 0.5 mg tablet 2021-0 10-01 00:00: 00 Yes [id number] TAKE 1 TABLET BY MOUTH EVERY DAY NEEDED FOR ANXIETY [facility] ALPRAZOLAM 0.5 mg tablet 2021-0 10-01 00:00: 00 Yes [id number] TAKE 1 TABLET BY MOUTH EVERY DAY NEEDED FOR ANXIETY [facility] ALPRAZOLAM 0.5 mg tablet 2021-0 10-01 00:00: 00 Yes [id number] TAKE 1 TABLET BY MOUTH EVERY DAY NEEDED FOR ANXIETY [facility] ALPRAZOLAM 0.5 mg tablet 2021-0 10-01 00:00: 00 Yes [id number] TAKE 1 TABLET BY MOUTH EVERY DAY NEEDED FOR ANXIETY [facility] ALPRAZOLAM 0.5 mg tablet 2021-0 10-01 00:00: 00 Yes [id number] TAKE 1 TABLET BY MOUTH EVERY DAY NEEDED FOR ANXIETY [facility] ALPRAZOLAM 0.5 mg tablet 2021-0 10-01 00:00: 00 Yes [id number] TAKE 1 TABLET BY MOUTH EVERY DAY NEEDED FOR ANXIETY [facility] ALPRAZOLAM 0.5 mg tablet 2021-0 10-01 00:00: 00 Yes [id number] TAKE 1 TABLET BY MOUTH EVERY DAY NEEDED FOR ANXIETY [facility] ALPRAZOLAM 0.5 mg tablet 2021-0 10-01 00:00: 00 Yes [id number] TAKE 1 TABLET BY MOUTH EVERY DAY NEEDED FOR ANXIETY [facility] ALPRAZOLAM 0.5 mg tablet 2021-0 10-01 00:00: 00 Yes [id number] TAKE 1 TABLET BY MOUTH EVERY DAY NEEDED FOR ANXIETY [facility] ALPRAZOLAM 0.5 mg tablet 2021-0 10-01 00:00: 00 Yes [id number] TAKE 1 TABLET BY MOUTH EVERY DAY NEEDED FOR ANXIETY [facility] ALPRAZOLAM 0.5 mg tablet 2021-0 10-01 00:00: 00 Yes [id number] TAKE 1 TABLET BY MOUTH EVERY DAY NEEDED FOR ANXIETY [facility] ALPRAZOLAM 0.5 mg tablet 2021-0 10-01 00:00: 00 Yes [id number] TAKE 1 TABLET BY MOUTH EVERY DAY NEEDED FOR ANXIETY [facility] ALPRAZOLAM 0.5 mg tablet 2021-0 10-01 00:00: 00 Yes [id number] TAKE 1 TABLET BY MOUTH EVERY DAY NEEDED FOR ANXIETY [facility] ALPRAZOLAM 0.5 mg tablet 2021-0 10-01 00:00: 00 Yes [id number] TAKE 1 TABLET BY MOUTH EVERY DAY NEEDED FOR ANXIETY [facility] ALPRAZOLAM 0.5 mg tablet 2021-0 10-01 00:00: 00 Yes [id number] TAKE 1 TABLET BY MOUTH EVERY DAY NEEDED FOR ANXIETY [facility] ALPRAZOLAM 0.5 mg tablet 2021-0 10-01 00:00: 00 Yes [id number] TAKE 1 TABLET BY MOUTH EVERY DAY NEEDED FOR ANXIETY [facility] ALPRAZOLAM 0.5 mg tablet 2021-0 10-01 00:00: 00 Yes [id number] TAKE 1 TABLET BY MOUTH EVERY DAY NEEDED FOR ANXIETY [facility] ALPRAZOLAM 0.5 mg tablet 2021-0 10-01 00:00: 00 Yes [id number] TAKE 1 TABLET BY MOUTH EVERY DAY NEEDED FOR ANXIETY [facility] ALPRAZOLAM 0.5 mg tablet 2021-0 10-01 00:00: 00 Yes [id number] TAKE 1 TABLET BY MOUTH EVERY DAY NEEDED FOR ANXIETY [facility] ALPRAZOLAM 0.5 mg tablet 2021-0 10-01 00:00: 00 Yes [id number] TAKE 1 TABLET BY MOUTH EVERY DAY NEEDED FOR ANXIETY [facility] ALPRAZOLAM 0.5 mg tablet 2021-0 10-01 00:00: 00 Yes [id number] TAKE 1 TABLET BY MOUTH EVERY DAY NEEDED FOR ANXIETY [facility] ALPRAZOLAM 0.5 mg tablet 2-0 10-01 00:00: 00 Yes [id number] TAKE 1 TABLET BY MOUTH EVERY DAY NEEDED FOR ANXIETY [facility] ALPRAZOLAM 0.5 mg tablet 2021-0 10-01 00:00: 00 Yes [id number] TAKE 1 TABLET BY MOUTH EVERY DAY NEEDED FOR ANXIETY [facility] ALPRAZOLAM 0.5 mg tablet 2021-0 10-01 00:00: 00 Yes [id number] TAKE 1 TABLET BY MOUTH EVERY DAY NEEDED FOR ANXIETY [facility] ALPRAZOLAM 0.5 mg tablet 2021-0 10-01 00:00: 00 Yes [id number] TAKE 1 TABLET BY MOUTH EVERY DAY NEEDED FOR ANXIETY [facility] ALPRAZOLAM 0.5 mg tablet 2021-0 10-01 00:00: 00 Yes [id number] TAKE 1 TABLET BY MOUTH EVERY DAY NEEDED FOR ANXIETY [facility] ALPRAZOLAM 0.5 mg tablet 2021-0 10-01 00:00: 00 Yes [id number] TAKE 1 TABLET BY MOUTH EVERY DAY NEEDED FOR ANXIETY [facility] ALPRAZOLAM 0.5 mg tablet 2-0 10-01 00:00: 00 Yes [id number] TAKE 1 TABLET BY MOUTH EVERY DAY NEEDED FOR ANXIETY [facility] ALPRAZOLAM 0.5 mg tablet 2021-0 10-01 00:00: 00 Yes [id number] TAKE 1 TABLET BY MOUTH EVERY DAY NEEDED FOR ANXIETY [facility] ALPRAZOLAM 0.5 mg tablet 2021-0 10-01 00:00: 00 Yes [id number] TAKE 1 TABLET BY MOUTH EVERY DAY NEEDED FOR ANXIETY [facility] ALPRAZOLAM 0.5 mg tablet 2-0 10-01 00:00: 00 Yes [id number] TAKE 1 TABLET BY MOUTH EVERY DAY NEEDED FOR ANXIETY [facility] ALPRAZOLAM 0.5 mg tablet 2021-0 10-01 00:00: 00 Yes [id number] TAKE 1 TABLET BY MOUTH EVERY DAY NEEDED FOR ANXIETY [facility] ALPRAZOLAM 0.5 mg tablet 2021-0 10-01 00:00: 00 Yes [id number] TAKE 1 TABLET BY MOUTH EVERY DAY NEEDED FOR ANXIETY [facility] ALPRAZOLAM 0.5 mg tablet 2021-0 10-01 00:00: 00 Yes [id number] TAKE 1 TABLET BY MOUTH EVERY DAY NEEDED FOR ANXIETY [facility] ALPRAZOLAM 0.5 mg tablet 2021-0 10-01 00:00: 00 Yes [id number] TAKE 1 TABLET BY MOUTH EVERY DAY NEEDED FOR ANXIETY [facility] ALPRAZOLAM 0.5 mg tablet 2021-0 10-01 00:00: 00 Yes [id number] TAKE 1 TABLET BY MOUTH EVERY DAY NEEDED FOR ANXIETY [facility] ALPRAZOLAM 0.5 mg tablet 2021-0 10-01 00:00: 00 Yes [id number] TAKE 1 TABLET BY MOUTH EVERY DAY NEEDED FOR ANXIETY [facility] ALPRAZOLAM 0.5 mg tablet 2021-0 10-01 00:00: 00 Yes [id number] TAKE 1 TABLET BY MOUTH EVERY DAY NEEDED FOR ANXIETY [facility] ALPRAZOLAM 0.5 mg tablet 2021-0 10-01 00:00: 00 Yes [id number] TAKE 1 TABLET BY MOUTH EVERY DAY NEEDED FOR ANXIETY [facility] ALPRAZOLAM 0.5 mg tablet 2021-0 10-01 00:00: 00 Yes [id number] TAKE 1 TABLET BY MOUTH EVERY DAY NEEDED FOR ANXIETY [facility] ALPRAZOLAM 0.5 mg tablet 2021-0 10-01 00:00: 00 Yes [id number] TAKE 1 TABLET BY MOUTH EVERY DAY NEEDED FOR ANXIETY [facility] ALPRAZOLAM 0.5 mg tablet 2021-0 10-01 00:00: 00 Yes [id number] TAKE 1 TABLET BY MOUTH EVERY DAY NEEDED FOR ANXIETY [facility] ALPRAZOLAM 0.5 mg tablet 2021-0 10-01 00:00: 00 Yes [id number] TAKE 1 TABLET BY MOUTH EVERY DAY NEEDED FOR ANXIETY [facility] ALPRAZOLAM 0.5 mg tablet 2021-0 10-01 00:00: 00 Yes [id number] TAKE 1 TABLET BY MOUTH EVERY DAY NEEDED FOR ANXIETY [facility] ALPRAZOLAM 0.5 mg tablet 2021-0 10-01 00:00: 00 Yes [id number] TAKE 1 TABLET BY MOUTH EVERY DAY NEEDED FOR ANXIETY [facility] ALPRAZOLAM 0.5 mg tablet 2021-0 10-01 00:00: 00 Yes [id number] TAKE 1 TABLET BY MOUTH EVERY DAY NEEDED FOR ANXIETY [facility] ALPRAZOLAM 0.5 mg tablet 2021-0 10-01 00:00: 00 Yes [id number] TAKE 1 TABLET BY MOUTH EVERY DAY NEEDED FOR ANXIETY [facility] ALPRAZOLAM 0.5 mg tablet 2021-0 10-01 00:00: 00 Yes [id number] TAKE 1 TABLET BY MOUTH EVERY DAY NEEDED FOR ANXIETY [facility] ALPRAZOLAM 0.5 mg tablet 2021-0 10-01 00:00: 00 Yes [id number] TAKE 1 TABLET BY MOUTH EVERY DAY NEEDED FOR ANXIETY [facility] ALPRAZOLAM 0.5 mg tablet 2021-0 10-01 00:00: 00 Yes [id number] TAKE 1 TABLET BY MOUTH EVERY DAY NEEDED FOR ANXIETY [facility] ALPRAZOLAM 0.5 mg tablet 2021-0 10-01 00:00: 00 Yes [id number] TAKE 1 TABLET BY MOUTH EVERY DAY NEEDED FOR ANXIETY [facility] ALPRAZOLAM 0.5 mg tablet 2021-0 8 00:00: 00 Yes [id number] TAKE 1 TABLET BY MOUTH EVERY DAY NEED[facility]XIETY [facility]5 [facility] 2021-0 8 00:00: 00 Yes [id number] TAKE 1 TABLET BY MOUTH EVERY DAY NEEDED FOR ANXIETY [facility] AL[facility].5 mg tablet 2021-0 8 00:00: 00 Yes [id number] TAKE 1 TABLET BY MOUTH EVERY DAY NEEDED FOR ANXIETY [facility] AL[facility].5 mg tablet 2021-0 8 00:00: 00 Yes [id number] TAKE 1 TABLET BY MOUTH EVERY DAY NEEDED FOR ANXIETY [facility] ROSUVASTATI N 10 mg tablet 0 07-28 00:00: 00 Yes TAKE 1 TABLET BY MOUTH EVERY DAY [facility] 10 mg tablet 0 07-28 00:00: 00 Yes TAKE 1 TABLET BY MOUTH EVERY DAY [facility] ROSUVA[facility] N 10 mg tablet 0 07-28 00:00: 00 Yes TAKE 1 TABLET BY MOUTH EVERY DAY [facility] ROSUVASTATI N 10 mg tablet 0 07-28 00:00: 00 10-20 00:00 :00 No TAKE 1 TABLET BY MOUTH EVERY DAY [facility] losartan 50 mg tablet 0 07-27 00:00: 00 Yes [id number] 50mg Take 1 tablet by mouth daily. [facility] 0 07-27 00:00: 00 Yes [id number] 50mg Take 1 tablet by mouth daily. [facility] losartan 50 mg tablet 2021-0 07-27 00:00: 00 Yes [id number] 50mg Take 1 tablet by mouth daily. [facility] tablet 0 07-27 00:00: 00 Yes [id number] 50mg Take 1 tablet by mouth daily. [facility] losartan 50 mg tablet 2021-0 620 00:00: 00 Yes [id number] 50mg Take 1 tablet by mouth daily. [facility] losartan 50 mg tablet 2021-0 20 00:00: 00 Yes [id number] 50mg Take 1 tablet by mouth daily. [facility] 2021-0 20 00:00: 00 Yes [id number] 50mg Take 1 tablet by mouth daily. [facility] losartan 50 mg tablet 2021-0 20 00:00: 00 Yes [id number] 50mg Take 1 tablet by mouth daily. [facility] losartan 50 mg tablet 2021-0 20 00:00: 00 Yes [id number] 50mg Take 1 tablet by mouth daily. [facility] losartan 50 mg tablet 2021-0 20 00:00: 00 Yes [id number] 50mg Take 1 tablet by mouth daily. [facility] losartan 50 mg tablet 0 07-27 00:00: 00 Yes [id number] 50mg Take 1 tablet by mouth daily. [facility] losartan 50 mg tablet 2021-0 20 00:00: 00 Yes [id number] 50mg Take 1 tablet by mouth daily. [facility] losartan 50 mg tablet 2021-0 20 00:00: 00 Yes [id number] 50mg Take 1 tablet by mouth daily. [facility] losartan 50 mg tablet 0 20 00:00: 00 Yes [id number] 50mg Take 1 tablet by mouth daily. [facility] losartan 50 mg tablet 2021-0 20 00:00: 00 Yes [id number] 50mg Take 1 tablet by mouth daily. [facility] losartan 50 mg tablet 2021-0 20 00:00: 00 Yes [id number] 50mg Take 1 tablet by mouth daily. [facility] losartan 50 mg tablet 2021-0 20 00:00: 00 Yes [id number] 50mg Take 1 tablet by mouth daily. [facility] losartan 50 mg tablet 2021-0 20 00:00: 00 Yes [id number] 50mg Take 1 tablet by mouth daily. [facility] losartan 50 mg tablet 2021-0 20 00:00: 00 Yes [id number] 50mg Take 1 tablet by mouth daily. [facility] losartan 50 mg tablet 2021-0 20 00:00: 00 Yes [id number] 50mg Take 1 tablet by mouth daily. [facility] 2021-0 20 00:00: 00 Yes [id number] 50mg Take 1 tablet by mouth daily. [facility] losartan 50 mg tablet 2021-0 20 00:00: 00 Yes [id number] 50mg Take 1 tablet by mouth daily. [facility] 2021-0 20 00:00: 00 Yes [id number] 50mg Take 1 tablet by mouth daily. [facility] losartan 50 mg tablet 2021-0 20 00:00: 00 Yes [id number] 50mg Take 1 tablet by mouth daily. [facility] losartan 50 mg tablet 0 07-27 00:00: 00 Yes [id number] 50mg Take 1 tablet by mouth daily. [facility] losartan 50 mg tablet 2021-0 07-27 00:00: 00 Yes [id number] 50mg Take 1 tablet by mouth daily. [facility] losartan 50 mg tablet 0 07-27 00:00: 00 Yes [id number] 50mg Take 1 tablet by mouth daily. [facility] losartan 50 mg tablet 0 20 00:00: 00 Yes [id number] 50mg Take 1 tablet by mouth daily. [facility] losartan 50 mg tablet 2021-0 20 00:00: 00 Yes [id number] 50mg Take 1 tablet by mouth daily. [facility] losartan 50 mg tablet 2021-0 20 00:00: 00 Yes [id number] 50mg Take 1 tablet by mouth daily. [facility] losartan 50 mg tablet 2021-0 20 00:00: 00 Yes [id number] 50mg Take 1 tablet by mouth daily. [facility] losartan 50 mg tablet 2021-0 20 00:00: 00 Yes [id number] 50mg Take 1 tablet by mouth daily. [facility] losartan 50 mg tablet 2-0 20 00:00: 00 Yes [id number] 50mg Take 1 tablet by mouth daily. [facility] losartan 50 mg tablet 2021-0 20 00:00: 00 Yes [id number] 50mg Take 1 tablet by mouth daily. [facility] losartan 50 mg tablet 2021-0 20 00:00: 00 Yes [id number] 50mg Take 1 tablet by mouth daily. [facility] losartan 50 mg tablet 2021-0 20 00:00: 00 Yes [id number] 50mg Take 1 tablet by mouth daily. [facility] losartan 50 mg tablet 2021-0 20 00:00: 00 Yes [id number] 50mg Take 1 tablet by mouth daily. [facility] losartan 50 mg tablet 2021-0 20 00:00: 00 Yes [id number] 50mg Take 1 tablet by mouth daily. [facility] losartan 50 mg tablet 2021-0 20 00:00: 00 Yes [id number] 50mg Take 1 tablet by mouth daily. [facility] losartan 50 mg tablet 2021-0 20 00:00: 00 Yes [id number] 50mg Take 1 tablet by mouth daily. [facility] losartan 50 mg tablet 2021-0 20 00:00: 00 Yes [id number] 50mg Take 1 tablet by mouth daily. [facility] losartan 50 mg tablet 0 20 00:00: 00 Yes [id number] 50mg Take 1 tablet by mouth daily. [facility] losartan 50 mg tablet 2021-0 20 00:00: 00 Yes [id number] 50mg Take 1 tablet by mouth daily. [facility] losartan 50 mg tablet 2021-0 20 00:00: 00 Yes [id number] 50mg Take 1 tablet by mouth daily. [facility] losartan 50 mg tablet 2021-0 20 00:00: 00 Yes [id number] 50mg Take 1 tablet by mouth daily. [facility] losartan 50 mg tablet 2021-0 20 00:00: 00 Yes [id number] 50mg Take 1 tablet by mouth daily. [facility] losartan 50 mg tablet 2-0 20 00:00: 00 Yes [id number] 50mg Take 1 tablet by mouth daily. [facility] losartan 50 mg tablet 0 07-27 00:00: 00 Yes [id number] 50mg Take 1 tablet by mouth daily. [facility] losartan 50 mg tablet 0 07-27 00:00: 00 Yes [id number] 50mg Take 1 tablet by mouth daily. [facility] losartan 50 mg tablet 0 07-27 00:00: 00 Yes [id number] 50mg Take 1 tablet by mouth daily. [facility] losartan 50 mg tablet 0 07-27 00:00: 00 Yes [id number] 50mg Take 1 tablet by mouth daily. [facility] losartan 50 mg tablet 0 07-27 00:00: 00 Yes [id number] 50mg Take 1 tablet by mouth daily. [facility] losartan 50 mg tablet 0 07-27 00:00: 00 Yes [id number] 50mg Take 1 tablet by mouth daily. [facility] losartan 50 mg tablet 0 07-27 00:00: 00 Yes [id number] 50mg Take 1 tablet by mouth daily. [facility] losartan 50 mg tablet 0 07-27 00:00: 00 Yes [id number] 50mg Take 1 tablet by mouth daily. [facility] losartan 50 mg tablet 0 07-27 00:00: 00 Yes [id number] 50mg Take 1 tablet by mouth daily. [facility] losartan 50 mg tablet 0 07-27 00:00: 00 Yes [id number] 50mg Take 1 tablet by mouth daily. [facility] losartan 50 mg tablet 0 07-27 00:00: 00 Yes [id number] 50mg Take 1 tablet by mouth daily. [facility] losartan 50 mg tablet 0 07-27 00:00: 00 Yes [id number] 50mg Take 1 tablet by mouth daily. [facility] losartan 50 mg tablet 2021-0 07-27 00:00: 00 Yes [id number] 50mg Take 1 tablet by mouth daily. [facility] losartan 50 mg tablet 2021-0 20 00:00: 00 Yes [id number] 50mg Take 1 tablet by mouth daily. [facility] 2021-0 20 00:00: 00 Yes [id number] 50mg Take 1 tablet by mouth daily. [facility] tablet 0 20 00:00: 00 Yes [id number] 50mg Take 1 tablet by mouth daily. [facility] 2021-0 20 00:00: 00 Yes [id number] 50mg Take 1 tablet by mouth daily. [facility] 2021-0 07-27 00:00: 00 Yes [id number] 50mg Take 1 tablet by mouth daily. [facility] tablet 0 07-27 00:00: 00 Yes [id number] 50mg Take 1 tablet by mouth daily. [facility] losartan 50 mg tablet 2021-0 07-27 00:00: 00 Yes [id number] 50mg Take 1 tablet by mouth daily. [facility] losartan 50 mg tablet 2021-0 07-27 00:00: 00 Yes [id number] 50mg Take 1 tablet by mouth daily. [facility]-60 mg tablet 0 06-11 00:00: 00 Yes [facility] lidocaine 5 % (700 mg/patch) patch 06-11 00:00: 00 Yes [facility] acetaminoph en-codeine 300-60 mg tablet 0 06-11 00:00: 00 Yes [facility] lidocaine 5 % (700 mg/patch) patch 2021-0 05 00:00: 00 Yes [facility] acetaminoph en-codeine 300-60 mg tablet 0 05 00:00: 00 Yes [facility] lidocaine 5 % (700 mg/patch) patch 0 05 00:00: 00 Yes [facility] acetaminoph en-codeine 300-60 mg tablet 0 05 00:00: 00 Yes [facility] lidocaine 5 % (700 mg/patch) patch 0 5-05 00:00: 00 Yes [facility] acetaminoph en-codeine 300-60 mg tablet 2021-0 06-11 00:00: 00 Yes [facility] lidocaine 5 % (700 mg/patch) patch 2021-0 06-11 00:00: 00 Yes [facility] acetaminoph en-codeine 300-60 mg tablet 2021-0 06-11 00:00: 00 Yes [facility] lidocaine 5 % (700 mg/patch) patch 2021-0 06-11 00:00: 00 Yes [facility] acetaminoph en-codeine 300-60 mg tablet 0 06-11 00:00: 00 Yes [facility] lidocaine 5 % (700 mg/patch) patch 2021-0 06-11 00:00: 00 Yes [facility] acetaminoph en-codeine 300-60 mg tablet 0 06-11 00:00: 00 Yes [facility] lidocaine 5 % (700 mg/patch) patch 0 06-11 00:00: 00 Yes [facility] acetaminoph en-codeine 300-60 mg tablet 0 06-11 00:00: 00 Yes [facility] lidocaine 5 % (700 mg/patch) patch 0 06-11 00:00: 00 Yes [facility] acetaminoph en-codeine 300-60 mg tablet 0 06-11 00:00: 00 Yes [facility] lidocaine 5 % (700 mg/patch) patch 0 06-11 00:00: 00 Yes [facility] acetaminoph en-codeine 300-60 mg tablet 0 06-11 00:00: 00 Yes [facility] lidocaine 5 % (700 mg/patch) patch 0 06-11 00:00: 00 Yes [facility] acetaminoph en-codeine 300-60 mg tablet 0 06-11 00:00: 00 Yes [facility] lidocaine 5 % (700 mg/patch) patch 0 05 00:00: 00 Yes [facility] acetaminoph en-codeine 300-60 mg tablet 0 06-11 00:00: 00 Yes [facility] lidocaine 5 % (700 mg/patch) patch 0 06-11 00:00: 00 Yes [facility] acetaminoph en-codeine 300-60 mg tablet 0 06-11 00:00: 00 Yes [facility] lidocaine 5 % (700 mg/patch) patch 0 06-11 00:00: 00 Yes [facility] acetaminoph en-codeine 300-60 mg tablet 0 06-11 00:00: 00 Yes [facility] lidocaine 5 % (700 mg/patch) patch 0 06-11 00:00: 00 Yes [facility] acetaminoph en-codeine 300-60 mg tablet 0 06-11 00:00: 00 Yes [facility] lidocaine 5 % (700 mg/patch) patch 0 06-11 00:00: 00 Yes [facility] acetaminoph en-codeine 300-60 mg tablet 06-11 00:00: 00 Yes [facility] lidocaine 5 % (700 mg/patch) patch 06-11 00:00: 00 Yes [facility] acetaminoph en-codeine 300-60 mg tablet 06-11 00:00: 00 Yes [facility] lidocaine 5 % (700 mg/patch) patch 0 06-11 00:00: 00 Yes [facility] acetaminoph en-codeine 300-60 mg tablet 06-11 00:00: 00 Yes [facility] lidocaine 5 % (700 mg/patch) patch 0 06-11 00:00: 00 Yes [facility] acetaminoph en-codeine 300-60 mg tablet 0 06-11 00:00: 00 Yes [facility] lidocaine 5 % (700 mg/patch) patch 0 06-11 00:00: 00 Yes [facility] acetaminoph en-codeine 300-60 mg tablet 2021-0 06-11 00:00: 00 Yes [facility] lidocaine 5 % (700 mg/patch) patch 2021-0 06-11 00:00: 00 Yes [facility] acetaminoph en-codeine 300-60 mg tablet 0 06-11 00:00: 00 Yes [facility] lidocaine 5 % (700 mg/patch) patch 2021-0 06-11 00:00: 00 Yes [facility] acetaminoph en-codeine 300-60 mg tablet 0 06-11 00:00: 00 Yes [facility] lidocaine 5 % (700 mg/patch) patch 0 06-11 00:00: 00 Yes [facility] acetaminoph en-codeine 300-60 mg tablet 0 06-11 00:00: 00 Yes [facility] lidocaine 5 % (700 mg/patch) patch 0 06-11 00:00: 00 Yes [facility] acetaminoph en-codeine 300-60 mg tablet 0 06-11 00:00: 00 Yes [facility] lidocaine 5 % (700 mg/patch) patch 0 06-11 00:00: 00 Yes [facility] acetaminoph en-codeine 300-60 mg tablet 0 06-11 00:00: 00 Yes [facility] lidocaine 5 % (700 mg/patch) patch 0 06-11 00:00: 00 Yes [facility] acetaminoph en-codeine 300-60 mg tablet 0 06-11 00:00: 00 Yes [facility] lidocaine 5 % (700 mg/patch) patch 0 05 00:00: 00 Yes [facility] acetaminoph en-codeine 300-60 mg tablet 0 06-11 00:00: 00 Yes [facility] lidocaine 5 % (700 mg/patch) patch 2021-0 05 00:00: 00 Yes [facility] acetaminoph en-codeine 300-60 mg tablet 2021-0 06-11 00:00: 00 Yes [facility] lidocaine 5 % (700 mg/patch) patch 2021-0 06-11 00:00: 00 Yes [facility] acetaminoph en-codeine 300-60 mg tablet 2021-0 06-11 00:00: 00 Yes [facility] lidocaine 5 % (700 mg/patch) patch 2021-0 06-11 00:00: 00 Yes [facility] acetaminoph en-codeine 300-60 mg tablet 0 06-11 00:00: 00 Yes [facility] lidocaine 5 % (700 mg/patch) patch 2021-0 06-11 00:00: 00 Yes [facility] acetaminoph en-codeine 300-60 mg tablet 0 06-11 00:00: 00 Yes [facility] lidocaine 5 % (700 mg/patch) patch 2021-0 06-11 00:00: 00 Yes [facility] acetaminoph en-codeine 300-60 mg tablet 0 06-11 00:00: 00 Yes [facility] lidocaine 5 % (700 mg/patch) patch 0 06-11 00:00: 00 Yes [facility] acetaminoph en-codeine 300-60 mg tablet 0 06-11 00:00: 00 Yes [facility] lidocaine 5 % (700 mg/patch) patch 2021-0 06-11 00:00: 00 Yes [facility] acetaminoph en-codeine 300-60 mg tablet 0 05 00:00: 00 Yes [facility] lidocaine 5 % (700 mg/patch) patch 2021-0 05 00:00: 00 Yes [facility] acetaminoph en-codeine 300-60 mg tablet 0 05 00:00: 00 Yes [facility] lidocaine 5 % (700 mg/patch) patch 2021-0 05 00:00: 00 Yes [facility] acetaminoph en-codeine 300-60 mg tablet 2021-0 06-11 00:00: 00 Yes [facility] lidocaine 5 % (700 mg/patch) patch 2021-0 06-11 00:00: 00 Yes [facility] acetaminoph en-codeine 300-60 mg tablet 0 06-11 00:00: 00 Yes [facility] lidocaine 5 % (700 mg/patch) patch 2021-0 06-11 00:00: 00 Yes [facility] acetaminoph en-codeine 300-60 mg tablet 0 06-11 00:00: 00 Yes [facility] lidocaine 5 % (700 mg/patch) patch 2021-0 06-11 00:00: 00 Yes [facility] acetaminoph en-codeine 300-60 mg tablet 0 06-11 00:00: 00 Yes [facility] lidocaine 5 % (700 mg/patch) patch 0 06-11 00:00: 00 Yes [facility] acetaminoph en-codeine 300-60 mg tablet 0 06-11 00:00: 00 Yes [facility] lidocaine 5 % (700 mg/patch) patch 0 06-11 00:00: 00 Yes [facility] acetaminoph en-codeine 300-60 mg tablet 0 06-11 00:00: 00 Yes [facility] lidocaine 5 % (700 mg/patch) patch 0 06-11 00:00: 00 Yes [facility] acetaminoph en-codeine 300-60 mg tablet 0 06-11 00:00: 00 Yes [facility] lidocaine 5 % (700 mg/patch) patch 2021-0 05 00:00: 00 Yes [facility] acetaminoph en-codeine 300-60 mg tablet 0 05 00:00: 00 Yes [facility] lidocaine 5 % (700 mg/patch) patch 2021-0 05 00:00: 00 Yes [facility] acetaminoph en-codeine 300-60 mg tablet 0 06-11 00:00: 00 Yes [facility] lidocaine 5 % (700 mg/patch) patch 0 06-11 00:00: 00 Yes [facility] acetaminoph en-codeine 300-60 mg tablet 0 06-11 00:00: 00 Yes [facility] lidocaine 5 % (700 mg/patch) patch 0 06-11 00:00: 00 Yes [facility] acetaminoph en-codeine 300-60 mg tablet 0 06-11 00:00: 00 Yes [facility] lidocaine 5 % (700 mg/patch) patch 0 06-11 00:00: 00 Yes [facility] acetaminoph en-codeine 300-60 mg tablet 06-11 00:00: 00 Yes [facility] lidocaine 5 % (700 mg/patch) patch 0 06-11 00:00: 00 Yes [facility] acetaminoph en-codeine 300-60 mg tablet 06-11 00:00: 00 Yes [facility] lidocaine 5 % (700 mg/patch) patch 06-11 00:00: 00 Yes [facility] acetaminoph en-codeine 300-60 mg tablet 06-11 00:00: 00 Yes [facility] lidocaine 5 % (700 mg/patch) patch 0 06-11 00:00: 00 Yes [facility] acetaminoph en-codeine 300-60 mg tablet 06-11 00:00: 00 Yes [facility] lidocaine 5 % (700 mg/patch) patch 0 06-11 00:00: 00 Yes [facility] acetaminoph en-codeine 300-60 mg tablet 06-11 00:00: 00 Yes [facility] lidocaine 5 % (700 mg/patch) patch 0 06-11 00:00: 00 Yes [facility] acetaminoph en-codeine 300-60 mg tablet 0 06-11 00:00: 00 Yes [facility] lidocaine 5 % (700 mg/patch) patch 0 06-11 00:00: 00 Yes [facility] acetaminoph en-codeine 300-60 mg tablet 0 06-11 00:00: 00 Yes [facility] lidocaine 5 % (700 mg/patch) patch 0 06-11 00:00: 00 Yes [facility] acetaminoph en-codeine 300-60 mg tablet 0 06-11 00:00: 00 Yes [facility] lidocaine 5 % (700 mg/patch) patch 0 06-11 00:00: 00 Yes [facility] acetaminoph en-codeine 300-60 mg tablet 06-11 00:00: 00 Yes [facility] lidocaine 5 % (700 mg/patch) patch 06-11 00:00: 00 Yes [facility] acetaminoph en-codeine 300-60 mg tablet 06-11 00:00: 00 Yes [facility] lidocaine 5 % (700 mg/patch) patch 06-11 00:00: 00 Yes [facility] acetaminoph en-codeine 300-60 mg tablet 06-11 00:00: 00 Yes [facility] lidocaine 5 % (700 mg/patch) patch 06-11 00:00: 00 Yes [facility] acetaminoph en-codeine 300-60 mg tablet 06-11 00:00: 00 Yes [facility] lidocaine 5 % (700 mg/patch) patch 0 06-11 00:00: 00 Yes [facility] acetaminoph en-codeine 300-60 mg tablet 06-11 00:00: 00 Yes [facility] lidocaine 5 % (700 mg/patch) patch 0 06-11 00:00: 00 Yes [facility] acetaminoph en-codeine 300-60 mg tablet 06-11 00:00: 00 Yes [facility] lidocaine 5 % (700 mg/patch) patch 06-11 00:00: 00 Yes [facility] acetaminoph en-codeine 300-60 mg tablet 06-11 00:00: 00 Yes [facility] lidocaine 5 % (700 mg/patch) patch 06-11 00:00: 00 Yes [facility] acetaminoph en-codeine 300-60 mg tablet 06-11 00:00: 00 Yes [facility] lidocaine 5 % (700 mg/patch) patch 06-11 00:00: 00 Yes [facility] acetaminoph en-codeine 300-60 mg tablet 06-11 00:00: 00 Yes [facility] lidocaine 5 % (700 mg/patch) patch 06-11 00:00: 00 Yes [facility] acetaminoph en-codeine 300-60 mg tablet 06-11 00:00: 00 Yes [facility] lidocaine 5 % (700 mg/patch) patch 06-11 00:00: 00 Yes [facility] acetaminoph en-codeine 300-60 mg tablet 06-11 00:00: 00 Yes [facility] lidocaine 5 % (700 mg/patch) patch 06-11 00:00: 00 Yes [facility] acetaminoph en-codeine 300-60 mg tablet 06-11 00:00: 00 Yes [facility] lidocaine 5 % (700 mg/patch) patch 06-11 00:00: 00 Yes [facility] acetaminoph en-codeine 300-60 mg tablet 06-11 00:00: 00 Yes [facility] lidocaine 5 % (700 mg/patch) patch 06-11 00:00: 00 Yes [facility] baclofen 10 mg tablet 4-19 11:40: 03 Yes 10mg Take 10 mg by mouth 3 (three) times daily. [facility] baclofen 10 mg tablet 2-0 05-26 11:40: 03 Yes 10mg Take 10 mg by mouth 3 (three) times daily. [facility] 2-0 05-26 11:40: 03 Yes 10mg Take 10 mg by mouth 3 (three) times daily. [facility] baclofen 10 mg tablet 2-0 05-26 11:40: 03 Yes 10mg Take 10 mg by mouth 3 (three) times daily. [facility] baclofen 10 mg tablet 2021-0 05-26 11:40: 03 Yes 10mg Take 10 mg by mouth 3 (three) times daily. [facility] baclofen 10 mg tablet 2021-0 05-26 11:40: 03 Yes 10mg Take 10 mg by mouth 3 (three) times daily. [facility] baclofen 10 mg tablet 2021-0 05-26 11:40: 03 Yes 10mg Take 10 mg by mouth 3 (three) times daily. [facility] baclofen 10 mg tablet 2021-0 05-26 11:40: 03 Yes 10mg Take 10 mg by mouth 3 (three) times daily. [facility] baclofen 10 mg tablet 2021-0 05-26 11:40: 03 Yes 10mg Take 10 mg by mouth 3 (three) times daily. [facility] baclofen 10 mg tablet 2-0 05-26 11:40: 03 Yes 10mg Take 10 mg by mouth 3 (three) times daily. [facility] baclofen 10 mg tablet 2-0 05-26 11:40: 03 Yes 10mg Take 10 mg by mouth 3 (three) times daily. [facility] baclofen 10 mg tablet 2-0 05-26 11:40: 03 Yes 10mg Take 10 mg by mouth 3 (three) times daily. [facility] baclofen 10 mg tablet 2-0 05-26 11:40: 03 Yes 10mg Take 10 mg by mouth 3 (three) times daily. [facility] baclofen 10 mg tablet 2-0 05-26 11:40: 03 Yes 10mg Take 10 mg by mouth 3 (three) times daily. [facility] b[facility] mg tablet 2021-0 05-26 11:40: 03 Yes 10mg Take 10 mg by mouth 3 (three) times daily. [facility] baclofen [facility] mg tablet 2021-0 05-26 11:40: 03 Yes 10mg Take 10 mg by mouth 3 (three) times daily. [facility] baclofen [facility] mg tablet 2021-0 05-26 11:40: 03 Yes 10mg Take 10 mg by mouth 3 (three) times daily. [facility] bacl[facility]en [facility] mg tablet 2021-0 05-26 11:40: 03 Yes 10mg Take 10 mg by mouth 3 (three) times daily. [facility] baclofen 10 mg tablet 2021-0 05-26 11:40: 03 Yes 10mg Take 10 mg by mouth 3 (three) times daily. [facility] baclofen 10 mg tablet 2021-0 05-26 11:40: 03 Yes 10mg Take 10 mg by mouth 3 (three) times daily. [facility] baclofen 10 mg tablet 2021-0 05-26 11:40: 03 Yes 10mg Take 10 mg by mouth 3 (three) times daily. [facility] baclofen 10 mg tablet 2021-0 05-26 11:40: 03 Yes 10mg Take 10 mg by mouth 3 (three) times daily. [facility] baclofen 10 mg tablet 2021-0 05-26 11:40: 03 Yes 10mg Take 10 mg by mouth 3 (three) times daily. [facility] baclofen 10 mg tablet 2-0 05-26 11:40: 03 Yes 10mg Take 10 mg by mouth 3 (three) times daily. [facility] baclofen 10 mg tablet 2021-0 05-26 11:40: 03 Yes 10mg Take 10 mg by mouth 3 (three) times daily. [facility] baclofen 10 mg tablet 2-0 05-26 11:40: 03 Yes 10mg Take 10 mg by mouth 3 (three) times daily. [facility] baclofen 10 mg tablet 2-0 05-26 11:40: 03 Yes 10mg Take 10 mg by mouth 3 (three) times daily. [facility] baclofen 10 mg tablet 2-0 05-26 11:40: 03 Yes 10mg Take 10 mg by mouth 3 (three) times daily. [facility] baclofen 10 mg tablet 2-0 05-26 11:40: 03 Yes 10mg Take 10 mg by mouth 3 (three) times daily. [facility] baclofen 10 mg tablet 2-0 05-26 11:40: 03 Yes 10mg Take 10 mg by mouth 3 (three) times daily. [facility] baclofen 10 mg tablet 2-0 05-26 11:40: 03 Yes 10mg Take 10 mg by mouth 3 (three) times daily. [facility] baclofen 10 mg tablet 2-0 05-26 11:40: 03 Yes 10mg Take 10 mg by mouth 3 (three) times daily. [facility] baclofen 10 mg tablet 2-0 05-26 11:40: 03 Yes 10mg Take 10 mg by mouth 3 (three) times daily. [facility] baclofen 10 mg tablet 2-0 05-26 11:40: 03 Yes 10mg Take 10 mg by mouth 3 (three) times daily. [facility] baclofen 10 mg tablet 2-0 05-26 11:40: 03 Yes 10mg Take 10 mg by mouth 3 (three) times daily. [facility] baclofen 10 mg tablet 2-0 05-26 11:40: 03 Yes 10mg Take 10 mg by mouth 3 (three) times daily. [facility] baclofen 10 mg tablet 2-0 05-26 11:40: 03 Yes 10mg Take 10 mg by mouth 3 (three) times daily. [facility] baclofen 10 mg tablet 2-0 05-26 11:40: 03 Yes 10mg Take 10 mg by mouth 3 (three) times daily. [facility] baclofen 10 mg tablet 2-0 05-26 11:40: 03 Yes 10mg Take 10 mg by mouth 3 (three) times daily. [facility] baclofen 10 mg tablet 2022-0 05-26 11:40: 03 Yes 10mg Take 10 mg by mouth 3 (three) times daily. [facility] baclofen 10 mg tablet 2-0 05-26 11:40: 03 Yes 10mg Take 10 mg by mouth 3 (three) times daily. [facility] baclofen 10 mg tablet 2-0 05-26 11:40: 03 Yes 10mg Take 10 mg by mouth 3 (three) times daily. [facility] mg tablet 2-0 05-26 11:40: 03 Yes 10mg Take 10 mg by mouth 3 (three) times daily. [facility] baclofen 10 mg tablet 2-0 05-26 11:40: 03 Yes 10mg Take 10 mg by mouth 3 (three) times daily. [facility] baclofen 10 mg tablet 2021-0 05-26 11:40: 03 Yes 10mg Take 10 mg by mouth 3 (three) times daily. [facility] baclofen 10 mg tablet 2021-0 05-26 11:40: 03 Yes 10mg Take 10 mg by mouth 3 (three) times daily. [facility] baclofen 10 mg tablet 2-0 05-26 11:40: 03 Yes 10mg Take 10 mg by mouth 3 (three) times daily. [facility] baclofen 10 mg tablet 2-0 05-26 11:40: 03 Yes 10mg Take 10 mg by mouth 3 (three) times daily. [facility] pramipexole 0.5 mg tablet 2-0 19 00:00: 00 Yes [facility] pramipexole 0.5 mg tablet 2-0 19 00:00: 00 Yes [facility] pramipexole 0.5 mg tablet 2-0 19 00:00: 00 Yes [facility] pramipexole 0.5 mg tablet 2022-0 -19 00:00: 00 Yes [facility] pramipexole 0.5 mg tablet 2-0 19 00:00: 00 Yes [facility] pramipexole 0.5 mg tablet 2-0 4-19 00:00: 00 Yes [facility] pramipexole 0.5 mg tablet 2-0 4-19 00:00: 00 Yes [facility] pramipexole 0.5 mg tablet 2-0 4-19 00:00: 00 Yes [facility] pramipexole 0.5 mg tablet 2-0 4-19 00:00: 00 Yes [facility] pramipexole 0.5 mg tablet 2-0 4-19 00:00: 00 Yes [facility] pramipexole 0.5 mg tablet 2-0 -19 00:00: 00 Yes [facility] pramipexole 0.5 mg tablet 2-0 4-19 00:00: 00 Yes [facility] pramipexole 0.5 mg tablet 2-0 4-19 00:00: 00 Yes [facility] pramipexole 0.5 mg tablet 2-0 4-19 00:00: 00 Yes [facility] pramipexole 0.5 mg tablet 2-0 -19 00:00: 00 Yes [facility] pramipexole 0.5 mg tablet 2-0 4-19 00:00: 00 Yes [facility] pramipexole 0.5 mg tablet 2-0 4-19 00:00: 00 Yes [facility] pramipexole 0.5 mg tablet 2-0 4-19 00:00: 00 Yes [facility] pramipexole 0.5 mg tablet 2-0 4-19 00:00: 00 Yes [facility] pramipexole 0.5 mg tablet 2-0 4-19 00:00: 00 Yes [facility] pramipexole 0.5 mg tablet 2-0 4-19 00:00: 00 Yes [facility] pramipexole 0.5 mg tablet 2-0 4-19 00:00: 00 Yes [facility] pramipexole 0.5 mg tablet 2-0 4-19 00:00: 00 Yes [facility] pramipexole 0.5 mg tablet 2-0 4-19 00:00: 00 Yes [facility] pramipexole 0.5 mg tablet 2-0 4-19 00:00: 00 Yes [facility] pramipexole 0.5 mg tablet 2-0 4-19 00:00: 00 Yes [facility] pramipexole 0.5 mg tablet 2-0 4-19 00:00: 00 Yes [facility] pramipexole 0.5 mg tablet 2-0 -19 00:00: 00 Yes [facility] pramipexole 0.5 mg tablet 2-0 4-19 00:00: 00 Yes [facility] pramipexole 0.5 mg tablet 2-0 19 00:00: 00 Yes [facility] pramipexole 0.5 mg tablet 2-0 4-19 00:00: 00 Yes [facility] pramipexole 0.5 mg tablet 2-0 19 00:00: 00 Yes [facility] pramipexole 0.5 mg tablet 2-0 419 00:00: 00 Yes [facility] pramipexole 0.5 mg tablet 2-0 4-19 00:00: 00 Yes [facility] pramipexole 0.5 mg tablet 2-0 419 00:00: 00 Yes [facility] pramipexole 0.5 mg tablet 2-0 4-19 00:00: 00 Yes [facility] pramipexole 0.5 mg tablet 2-0 419 00:00: 00 Yes [facility] pramipexole 0.5 mg tablet 2-0 4-19 00:00: 00 Yes [facility] pramipexole 0.5 mg tablet 2-0 -19 00:00: 00 Yes [facility] pramipexole 0.5 mg tablet 2-0 19 00:00: 00 Yes [facility] pramipexole 0.5 mg tablet 2-0 19 00:00: 00 Yes [facility] pramipexole 0.5 mg tablet 2-0 19 00:00: 00 Yes [facility] pramipexole 0.5 mg tablet 2-0 19 00:00: 00 Yes [facility] pramipexole 0.5 mg tablet 2-0 19 00:00: 00 Yes [facility] pramipexole 0.5 mg tablet 2-0 19 00:00: 00 Yes [facility] pramipexole 0.5 mg tablet 2-0 05-26 00:00: 00 Yes [facility] pramipexole 0.5 mg tablet 2-0 19 00:00: 00 Yes [facility] pramipexole 0.5 mg tablet 2-0 19 00:00: 00 Yes [facility] pramipexole 0.5 mg tablet 2-0 19 00:00: 00 Yes [facility] pramipexole 0.5 mg tablet 2-0 19 00:00: 00 Yes [facility] pramipexole 0.5 mg tablet 2-0 19 00:00: 00 Yes [facility] pramipexole 0.5 mg tablet 2-0 419 00:00: 00 Yes [facility] pramipexole 0.5 mg tablet 2-0 19 00:00: 00 Yes [facility] pramipexole 0.5 mg tablet 2-0 419 00:00: 00 Yes [facility] pramipexole 0.5 mg tablet 2-0 4-19 00:00: 00 Yes [facility] pramipexole 0.5 mg tablet 2-0 19 00:00: 00 Yes [facility] pramipexole 0.5 mg tablet 2-0 -19 00:00: 00 Yes [facility] pramipexole 0.5 mg tablet 2-0 19 00:00: 00 Yes [facility] pramipexole 0.5 mg tablet 2-0 -19 00:00: 00 Yes [facility] pramipexole 0.5 mg tablet 2-0 19 00:00: 00 Yes [facility] pramipexole 0.5 mg tablet 2-0 19 00:00: 00 Yes [facility] pramipexole 0.5 mg tablet 2-0 19 00:00: 00 Yes [facility] pramipexole 0.5 mg tablet 2-0 19 00:00: 00 Yes [facility] pramipexole 0.5 mg tablet 2-0 19 00:00: 00 Yes [facility] pramipexole 0.5 mg tablet 2-0 19 00:00: 00 Yes [facility] pramipexole 0.5 mg tablet 2-0 19 00:00: 00 Yes [facility] pramipexole 0.5 mg tablet 2-0 -19 00:00: 00 Yes [facility] pramipexole 0.5 mg tablet 2-0 19 00:00: 00 Yes [facility] traMADoL 200 mg 24 hr tablet 2-0 -19 00:00: 00 Yes [facility] traMADoL 200 mg 24 hr tablet 2-0 -19 00:00: 00 Yes [facility] traMADoL 200 mg 24 hr tablet 2-0 -19 00:00: 00 Yes [facility] traMADoL 200 mg 24 hr tablet 2-0 -19 00:00: 00 Yes [facility] traMADoL 200 mg 24 hr tablet 0 02-25 00:00: 00 Yes [facility] traMADoL 200 mg 24 hr tablet 0 02-25 00:00: 00 Yes [facility] traMADoL 200 mg 24 hr tablet 0 02-25 00:00: 00 Yes [facility] traMADoL 200 mg 24 hr tablet 0 02-25 00:00: 00 Yes [facility] traMADoL 200 mg 24 hr tablet 0 02-25 00:00: 00 Yes [facility] traMADoL 200 mg 24 hr tablet 0 02-25 00:00: 00 Yes [facility] traMADoL 200 mg 24 hr tablet 0 02-25 00:00: 00 Yes [facility] traMADoL 200 mg 24 hr tablet 0 02-25 00:00: 00 Yes [facility] traMADoL 200 mg 24 hr tablet 0 02-25 00:00: 00 Yes [facility] traMADoL 200 mg 24 hr tablet 0 02-25 00:00: 00 Yes [facility] traMADoL 200 mg 24 hr tablet 0 02-25 00:00: 00 Yes [facility] traMADoL 200 mg 24 hr tablet 0 02-25 00:00: 00 Yes [facility] traMADoL 200 mg 24 hr tablet 0 02-25 00:00: 00 Yes [facility] traMADoL 200 mg 24 hr tablet 0 02-25 00:00: 00 Yes [facility] traMADoL 200 mg 24 hr tablet 0 02-25 00:00: 00 Yes [facility] traMADoL 200 mg 24 hr tablet 0 02-25 00:00: 00 Yes [facility] traMADoL 200 mg 24 hr tablet 0 02-25 00:00: 00 Yes [facility] traMADoL 200 mg 24 hr tablet 0 02-25 00:00: 00 Yes [facility] traMADoL 200 mg 24 hr tablet 0 1-19 00:00: 00 Yes [facility] traMADoL 200 mg 24 hr tablet 2-0 - 00:00: 00 Yes [facility] traMADoL 200 mg 24 hr tablet 2-0 - 00:00: 00 Yes [facility] traMADoL 200 mg 24 hr tablet 2-0 02-25 00:00: 00 03-19 00:00 :00 No [facility] traMADoL 200 mg 24 hr tablet 2-0 02-25 00:00: 00 03-19 00:00 :00 No [facility] KESIMPTA PEN 20 mg/0.4 mL PnIj 2022-0 -18 00:00: 00 Yes [facility] KESIMPTA PEN 20 mg/0.4 mL PnIj 2022-0 18 00:00: 00 Yes [facility] KESIMPTA PEN 20 mg/0.4 mL PnIj 2022-0 -18 00:00: 00 Yes [facility] KESIMPTA PEN 20 mg/0.4 mL PnIj 2022-0 -18 00:00: 00 Yes [facility] KESIMPTA PEN 20 mg/0.4 mL PnIj 2022-0 -18 00:00: 00 Yes [facility] KESIMPTA PEN 20 mg/0.4 mL PnIj 2022-0 -18 00:00: 00 Yes [facility] KESIMPTA PEN 20 mg/0.4 mL PnIj 2022-0 -18 00:00: 00 Yes [facility] KESIMPTA PEN 20 mg/0.4 mL PnIj 2022-0 -18 00:00: 00 Yes [facility] KESIMPTA PEN 20 mg/0.4 mL PnIj 2022-0 -18 00:00: 00 Yes [facility] KESIMPTA PEN 20 mg/0.4 mL PnIj 2022-0 1-18 00:00: 00 Yes [facility] KESIMPTA PEN 20 mg/0.4 mL PnIj 2022-0 1-18 00:00: 00 Yes [facility] KESIMPTA PEN 20 mg/0.4 mL PnIj 2022-0 -18 00:00: 00 Yes [facility] KESIMPTA PEN 20 mg/0.4 mL PnIj 2022-0 -18 00:00: 00 Yes [facility] KESIMPTA PEN 20 mg/0.4 mL PnIj 2022-0 -18 00:00: 00 Yes [facility] KESIMPTA PEN 20 mg/0.4 mL PnIj 2022-0 -18 00:00: 00 Yes [facility] KESIMPTA PEN 20 mg/0.4 mL PnIj 2022-0 -18 00:00: 00 Yes [facility] KESIMPTA PEN 20 mg/0.4 mL PnIj 2022-0 -18 00:00: 00 Yes [facility] KESIMPTA PEN 20 mg/0.4 mL PnIj 2022-0 -18 00:00: 00 Yes [facility] KESIMPTA PEN 20 mg/0.4 mL PnIj 2022-0 -18 00:00: 00 Yes [facility] KESIMPTA PEN 20 mg/0.4 mL PnIj 2022-0 -18 00:00: 00 Yes [facility] KESIMPTA PEN 20 mg/0.4 mL PnIj 2022-0 -18 00:00: 00 Yes [facility] KESIMPTA PEN 20 mg/0.4 mL PnIj 2022-0 -18 00:00: 00 Yes [facility] KESIMPTA PEN 20 mg/0.4 mL PnIj 2022-0 -18 00:00: 00 Yes [facility] KESIMPTA PEN 20 mg/0.4 mL PnIj 2022-0 -18 00:00: 00 Yes [facility] KESIMPTA PEN 20 mg/0.4 mL PnIj 2022-0 -18 00:00: 00 Yes [facility] KESIMPTA PEN 20 mg/0.4 mL PnIj 02-24 00:00: 00 03-19 00:00 :00 No [facility] KESIMPTA PEN 20 mg/0.4 mL PnIj 02-24 00:00: 00 03-19 00:00 :00 No [facility] amitriptyli ne 50 mg tablet 2020-02 00:00: 00 Yes [facility] amitriptyli ne 50 mg tablet 2020-02 00:00: 00 Yes [facility] amitriptyli ne 50 mg tablet 2020-02 00:00: 00 Yes [facility] amitriptyli ne 50 mg tablet 2020-02 00:00: 00 Yes [facility] amitriptyli ne 50 mg tablet 2020-02 00:00: 00 Yes [facility] amitriptyli ne 50 mg tablet 2020-02 00:00: 00 Yes [facility] amitriptyli ne 50 mg tablet 2020-02 00:00: 00 Yes [facility] amitriptyli ne 50 mg tablet 2020-02 00:00: 00 Yes [facility] amitriptyli ne 50 mg tablet 2020-02 00:00: 00 Yes [facility] amitriptyli ne 50 mg tablet 2020-02 00:00: 00 Yes [facility] amitriptyli ne 50 mg tablet 2020-02 00:00: 00 Yes [facility] amitriptyli ne 50 mg tablet 2020-02 00:00: 00 Yes [facility] amitriptyli ne 50 mg tablet 2020-02 00:00: 00 Yes [facility] amitriptyli ne 50 mg tablet 2020-02 00:00: 00 Yes [facility] amitriptyli ne 50 mg tablet 2020-02 00:00: 00 Yes [facility] amitriptyli ne 50 mg tablet 2020-02 00:00: 00 Yes [facility] amitriptyli ne 50 mg tablet 2020-02 00:00: 00 Yes [facility] amitriptyli ne 50 mg tablet 2020-02 00:00: 00 Yes [facility] amitriptyli ne 50 mg tablet 2020-02 00:00: 00 Yes [facility] amitriptyli ne 50 mg tablet 2020-02 00:00: 00 Yes [facility] amitriptyli ne 50 mg tablet 2020-02 00:00: 00 Yes [facility] amitriptyli ne 50 mg tablet 2020-02 00:00: 00 Yes [facility] amitriptyli ne 50 mg tablet 2020-02 00:00: 00 Yes [facility] amitriptyli ne 50 mg tablet 2020-02 00:00: 00 Yes [facility] amitriptyli ne 50 mg tablet 2020-02 00:00: 00 Yes [facility] [facility] amitriptyli ne 50 mg tablet 2020-02 00:00: 00 Yes [facility] amitriptyli ne 50 mg tablet 2020-02 00:00: 00 Yes [facility] amitriptyli ne 50 mg tablet 2020-02 00:00: 00 Yes [facility] amitriptyli ne 50 mg tablet 2020-02 00:00: 00 Yes [facility] amitriptyli ne 50 mg tablet 2020-02 00:00: 00 Yes [facility] amitriptyli ne 50 mg tablet 2020-02 00:00: 00 Yes [facility] amitriptyli ne 50 mg tablet 2020-02 00:00: 00 Yes [facility] amitriptyli ne 50 mg tablet 2020-02 00:00: 00 Yes [facility] amitriptyli ne 50 mg tablet 2020-02 00:00: 00 Yes [facility] amitriptyli ne 50 mg tablet 2020-02 00:00: 00 Yes [facility] amitriptyli ne 50 mg tablet 2020-02 00:00: 00 Yes [facility] amitriptyli ne 50 mg tablet 2020-02 00:00: 00 Yes [facility] amitriptyli ne 50 mg tablet 2020-02 00:00: 00 Yes [facility] amitriptyli ne 50 mg tablet 2020-02 00:00: 00 Yes [facility] amitriptyli ne 50 mg tablet 2020-02 00:00: 00 Yes [facility] amitriptyli ne 50 mg tablet 2020-02 00:00: 00 Yes [facility] amitriptyli ne 50 mg tablet 2020-02 00:00: 00 Yes [facility] amitriptyli ne 50 mg tablet 2020-02 00:00: 00 Yes [facility] amitriptyli ne 50 mg tablet 2020-02 00:00: 00 Yes [facility] amitriptyli ne 50 mg tablet 2020-02 00:00: 00 Yes [facility] amitriptyli ne 50 mg tablet 2020-02 00:00: 00 Yes [facility] amitriptyli ne 50 mg tablet 2020-02 00:00: 00 Yes [facility] amitriptyli ne 50 mg tablet 2020-02 00:00: 00 Yes [facility] amitriptyli ne 50 mg tablet 2020-02 00:00: 00 Yes [facility] amitriptyli ne 50 mg tablet 2020-02 00:00: 00 Yes [facility] amitriptyli ne 50 mg tablet 2020-02 00:00: 00 Yes [facility] amitriptyli ne 50 mg tablet 2020-02 00:00: 00 Yes [facility] amitriptyli ne 50 mg tablet 2020-02 00:00: 00 Yes [facility] amitriptyli ne 50 mg tablet 2020-02 00:00: 00 Yes [facility] amitriptyli ne 50 mg tablet 2020-02 00:00: 00 Yes [facility] amitriptyli ne 50 mg tablet 2020-02 00:00: 00 Yes [facility] amitriptyli ne 50 mg tablet 2020-02 00:00: 00 Yes [facility] amitriptyli ne 50 mg tablet 2020-02 00:00: 00 Yes [facility] amitriptyli ne 50 mg tablet 2020-02 00:00: 00 Yes [facility] amitriptyli ne 50 mg tablet 2020-02 00:00: 00 Yes [facility] amitriptyli ne 50 mg tablet 2020-02 00:00: 00 Yes [facility] amitriptyli ne 50 mg tablet 2020-02 00:00: 00 Yes [facility] amitriptyli ne 50 mg tablet 2020-02 00:00: 00 Yes [facility] amitriptyli ne 50 mg tablet 2020-02 00:00: 00 Yes [facility] amitriptyli ne 50 mg tablet 2020-02 00:00: 00 Yes [facility] amitriptyli ne 50 mg tablet 2020-02 00:00: 00 Yes [facility] amitriptyli ne 50 mg tablet 2020-02 00:00: 00 Yes [facility] amitriptyli ne 50 mg tablet 2020-02 00:00: 00 Yes [facility] amitriptyli ne 50 mg tablet 2020-02 00:00: 00 Yes [facility] amitriptyli ne 50 mg tablet 2020-02 00:00: 00 Yes [facility] Rosuvastati n Calcium Rosuvastati n Calcium 2017-02 00:00: 00 Yes Sandra [place] 1 tablet Comm on [facility] Losartan Potassium Losartan Potassium 10-24 00:00: 00 Yes Sandra [place] 1 tablet Comm on [facility] Tecfidera Tecfidera 10-24 00:00: 00 Yes Sandra [place] 1 capsule Com [facility] Qudexy XR Qudexy XR 10-24 00:00: 00 Yes Sandra [place] 1 capsule Com [facility] gabapentin (NEURONTIN) 600 mg tablet 08-01 00:00: 00 Yes [id number] 600mg Take 1 Tab by mouth 2 (two) times daily. [facility] gabapentin (NEURONTIN) 600 mg tablet 08-01 00:00: 00 Yes [id number] 600mg Take 1 Tab by mouth 2 (two) times daily. [facility] gabapentin (NEURONTIN) 600 mg tablet 08-01 00:00: 00 Yes [id number] 600mg Take 1 Tab by mouth 2 (two) times daily. [facility] gabapentin (NEURONTIN) 600 mg tablet 08-01 00:00: 00 Yes [id number] 600mg Take 1 Tab by mouth 2 (two) times daily. [facility] gabapentin (NEURONTIN) 600 mg tablet 08-01 00:00: 00 Yes [id number] 600mg Take 1 Tab by mouth 2 (two) times daily. [facility] gabapentin (NEURONTIN) 600 mg tablet 08-01 00:00: 00 Yes [id number] 600mg Take 1 Tab by mouth 2 (two) times daily. [facility] gabapentin (NEURONTIN) 600 mg tablet 08-01 00:00: 00 Yes [id number] 600mg Take 1 Tab by mouth 2 (two) times daily. [facility] gabapentin (NEURONTIN) 600 mg tablet 08-01 00:00: 00 Yes [id number] 600mg Take 1 Tab by mouth 2 (two) times daily. [facility] gabapentin (NEURONTIN) 600 mg tablet 08-01 00:00: 00 Yes [id number] 600mg Take 1 Tab by mouth 2 (two) times daily. [facility] gabapentin (NEURONTIN) 600 mg tablet 08-01 00:00: 00 Yes [id number] 600mg Take 1 Tab by mouth 2 (two) times daily. [facility] gabapentin (NEURONTIN) 600 mg tablet 08-01 00:00: 00 Yes [id number] 600mg Take 1 Tab by mouth 2 (two) times daily. [facility] gabapentin (NEURONTIN) 600 mg tablet 08-01 00:00: 00 Yes [id number] 600mg Take 1 Tab by mouth 2 (two) times daily. [facility] gabapentin (NEURONTIN) 600 mg tablet 08-01 00:00: 00 Yes [id number] 600mg Take 1 Tab by mouth 2 (two) times daily. [facility] gabapentin (NEURONTIN) 600 mg tablet 08-01 00:00: 00 Yes [id number] 600mg Take 1 Tab by mouth 2 (two) times daily. [facility] gabapentin (NEURONTIN) 600 mg tablet 08-01 00:00: 00 Yes [id number] 600mg Take 1 Tab by mouth 2 (two) times daily. [facility] gabapentin (NEURONTIN) 600 mg tablet 08-01 00:00: 00 Yes [id number] 600mg Take 1 Tab by mouth 2 (two) times daily. [facility] gabapentin (NEURONTIN) 600 mg tablet 08-01 00:00: 00 Yes [id number] 600mg Take 1 Tab by mouth 2 (two) times daily. [facility] gabapentin (NEURONTIN) 600 mg tablet 08-01 00:00: 00 Yes [id number] 600mg Take 1 Tab by mouth 2 (two) times daily. [facility] gabapentin (NEURONTIN) 600 mg tablet 08-01 00:00: 00 Yes [id number] 600mg Take 1 Tab by mouth 2 (two) times daily. [facility] gabapentin (NEURONTIN) 600 mg tablet 08-01 00:00: 00 Yes [id number] 600mg Take 1 Tab by mouth 2 (two) times daily. [facility] gabapentin (NEURONTIN) 600 mg tablet 08-01 00:00: 00 Yes [id number] 600mg Take 1 Tab by mouth 2 (two) times daily. [facility] gabapentin (NEURONTIN) 600 mg tablet 08-01 00:00: 00 Yes [id number] 600mg Take 1 Tab by mouth 2 (two) times daily. [facility] gabapentin (NEURONTIN) 600 mg tablet 08-01 00:00: 00 Yes [id number] 600mg Take 1 Tab by mouth 2 (two) times daily. [facility] gabapentin (NEURONTIN) 600 mg tablet 08-01 00:00: 00 Yes [id number] 600mg Take 1 Tab by mouth 2 (two) times daily. [facility] gabapentin (NEURONTIN) 600 mg tablet 08-01 00:00: 00 Yes [id number] 600mg Take 1 Tab by mouth 2 (two) times daily. [facility] gabapentin (NEURONTIN) 600 mg tablet 08-01 00:00: 00 Yes [id number] 600mg Take 1 Tab by mouth 2 (two) times daily. [facility] gabapentin (NEURONTIN) 600 mg tablet 08-01 00:00: 00 Yes [id number] 600mg Take 1 Tab by mouth 2 (two) times daily. [facility] gabapentin (NEURONTIN) 600 mg tablet 08-01 00:00: 00 Yes [id number] 600mg Take 1 Tab by mouth 2 (two) times daily. [facility] gabapentin (NEURONTIN) 600 mg tablet 08-01 00:00: 00 Yes [id number] 600mg Take 1 Tab by mouth 2 (two) times daily. [facility] gabapentin (NEURONTIN) 600 mg tablet 08-01 00:00: 00 Yes [id number] 600mg Take 1 Tab by mouth 2 (two) times daily. [facility] gabapentin (NEURONTIN) 600 mg tablet 08-01 00:00: 00 04-19 00:00 :00 No [id number] 600mg Take 1 Tab by mouth 2 (two) times daily. [facility] gabapentin (NEURONTIN) 600 mg tablet 08-01 00:00: 00 04-19 00:00 :00 No [id number] 600mg Take 1 Tab by mouth 2 (two) times daily. [facility] gabapentin (NEURONTIN) 600 mg tablet 08-01 00:00: 00 04-19 00:00 :00 No [id number] 600mg Take 1 Tab by mouth 2 (two) times daily. [facility] gabapentin (NEURONTIN) 600 mg tablet 08-01 00:00: 00 04-19 00:00 :00 No [id number] 600mg Take 1 Tab by mouth 2 (two) times daily. [facility] Gabapentin 600 MG Gabapentin 600 MG No 1{table t} QD Gabapentin 600 MG Baclofen 10 MG Baclofen 10 MG No 1{table t_as_ne eded} BID Baclofen 10 MG Pramipexole Dihydrochlo ride 0.5 MG Pramipexole Dihydrochlo ride 0.5 MG No Pramipexol e Dihydrochl oride 0.5 MG traMADol HCl ER 200 MG traMADol HCl ER 200 MG No traMADol HCl ER 200 MG Amitriptyli ne HCl 25 MG Amitriptyli ne HCl 25 MG No Amitriptyl ine HCl 25 MG Rosuvastati n Calcium 10 MG Rosuvastati n Calcium 10 MG No 1{table t} QD Rosuvastat in Calcium 10 MG Losartan Potassium 50 MG Losartan Potassium 50 MG No 1{table t} QD Losartan Potassium 50 MG Acetaminoph en-Codeine #4 300-60 MG Acetaminoph en-Codeine #4 300-60 MG No Acetaminop hen-Codein e #4 300-60 MG Gabapentin 600 MG Gabapentin 600 MG No 1{table t} QD Gabapentin 600 MG Baclofen 10 MG Baclofen 10 MG No 1{table t_as_ne eded} BID Baclofen 10 MG Pramipexole Dihydrochlo ride 0.5 MG Pramipexole Dihydrochlo ride 0.5 MG No Pramipexol e Dihydrochl oride 0.5 MG traMADol HCl ER 200 MG traMADol HCl ER 200 MG No traMADol HCl ER 200 MG Amitriptyli ne HCl 25 MG Amitriptyli ne HCl 25 MG No Amitriptyl ine HCl 25 MG Rosuvastati n Calcium 10 MG Rosuvastati n Calcium 10 MG No 1{table t} QD Rosuvastat in Calcium 10 MG Losartan Potassium 50 MG Losartan Potassium 50 MG No 1{table t} QD Losartan Potassium 50 MG Acetaminoph en-Codeine #4 300-60 MG Acetaminoph en-Codeine #4 300-60 MG No Acetaminop hen-Codein e #4 300-60 MG Gabapentin 600 MG Gabapentin 600 MG No 1{table t} QD Gabapentin 600 MG Baclofen 10 MG Baclofen 10 MG No 1{table t_as_ne eded} BID Baclofen 10 MG Pramipexole Dihydrochlo ride 0.5 MG Pramipexole Dihydrochlo ride 0.5 MG No Pramipexol e Dihydrochl oride 0.5 MG traMADol HCl ER 200 MG traMADol HCl ER 200 MG No traMADol HCl ER 200 MG Amitriptyli ne HCl 25 MG Amitriptyli ne HCl 25 MG No Amitriptyl ine HCl 25 MG Rosuvastati n Calcium 10 MG Rosuvastati n Calcium 10 MG No 1{table t} QD Rosuvastat in Calcium 10 MG Losartan Potassium 50 MG Losartan Potassium 50 MG No 1{table t} QD Losartan Potassium 50 MG Acetaminoph en-Codeine #4 300-60 MG Acetaminoph en-Codeine #4 300-60 MG No Acetaminop hen-Codein e #4 300-60 MG Gabapentin 600 MG Gabapentin 600 MG No 1{table t} QD Gabapentin 600 MG Baclofen 10 MG Baclofen 10 MG No 1{table t_as_ne eded} BID Baclofen 10 MG Pramipexole Dihydrochlo ride 0.5 MG Pramipexole Dihydrochlo ride 0.5 MG No Pramipexol e Dihydrochl oride 0.5 MG traMADol HCl ER 200 MG traMADol HCl ER 200 MG No traMADol HCl ER 200 MG Tizanidine HCl Tizanidine HCl Yes Sandra Fontana TAKE 1 TABLET BY MOUTH TWICE DAILY NEEDED FOR MUSCLE SPASMS [facility] Amitriptyli ne HCl Amitriptyli ne HCl Yes Sandra Fontana TAKE 1 TABLET BY MOUTH AT BEDTIME FOR NERVE PAIN [facility] Gralise Gralise Yes Sandra Fontana 1 tab let with the evening meal [facility] TraMADol HCl ER TraMADol HCl ER Yes Sandra Fontana (Schedule IV Drug) TAKE 1 TABLET BY MOUTH EVERY DAY FOR FOR PAIN [facility] Pramipexole Dihydrochlo ride Pramipexole Dihydrochlo ride Yes Sandra Fontana TAKE 1 TABLET BY MOUTH FOUR TIMES DAILY FOR RESTLESS LEGS [facility] Acetaminoph en-Codeine #4 Acetaminoph en-Codeine #4 Yes Sandra Fontana (Schedule III Drug) TAKE 1 TABLET BY MOUTH FOUR TIMES DAILY NEEDED FOR PAIN [facility] Restasis Restasis Yes Sandra Fontana 1 d rop into affected eye [facility] Topiramate Topiramate Yes Sandra Fontana 1 table t [facility] Citalopram Hydrobromid e Citalopram Hydrobromid e Yes Sanrda Fontana 1 tablet [facility] Clonazepam Clonazepam Yes Sandra Fontana 1 table t [facility] Silenor Silenor Yes Sandra Fontana TAKE 1 TABLET BY MOUTH AT BEDTIME FOR SLEEP [facility] Catapres Catapres Yes Sandra Fontana 1 t ablet at bedtime [facility] Amitriptyli ne HCl 25 MG Amitriptyli ne HCl 25 MG No Amitriptyl ine HCl 25 MG Rosuvastati n Calcium 10 MG Rosuvastati n Calcium 10 MG No 1{table t} QD Rosuvastat in Calcium 10 MG Losartan Potassium 50 MG Losartan Potassium 50 MG No 1{table t} QD Losartan Potassium 50 MG Acetaminoph en-Codeine #4 300-60 MG Acetaminoph en-Codeine #4 300-60 MG No Acetaminop hen-Codein e #4 300-60 MG Gabapentin 600 MG Gabapentin 600 MG No 1{table t} QD Gabapentin 600 MG Baclofen 10 MG Baclofen 10 MG No 1{table t_as_ne eded} BID Baclofen 10 MG Pramipexole Dihydrochlo ride 0.5 MG Pramipexole Dihydrochlo ride 0.5 MG No Pramipexol e Dihydrochl oride 0.5 MG traMADol HCl ER 200 MG traMADol HCl ER 200 MG No traMADol HCl ER 200 MG Amitriptyli ne HCl 25 MG Amitriptyli ne HCl 25 MG No Amitriptyl ine HCl 25 MG Rosuvastati n Calcium 10 MG Rosuvastati n Calcium 10 MG No 1{table t} QD Rosuvastat in Calcium 10 MG Losartan Potassium 50 MG Losartan Potassium 50 MG No 1{table t} QD Losartan Potassium 50 MG Acetaminoph en-Codeine #4 300-60 MG Acetaminoph en-Codeine #4 300-60 MG No Acetaminop hen-Codein e #4 300-60 MG Vital Signs Vital Name Observation Time Observation Value Comments S ource blood pressure diastolic 2022-12-01 13:45:00 71 mm[Hg] [facility] height 2022-12-01 13:45:00 63 [in_i] [facility] weight 2022-12-01 13:45:00 111.8 [lb_av] [facility] temperature 2022-12-01 13:45:00 97.8 [degF] [facility] bmi 2022-12-01 13:45:00 19.8 kg/m2 [facility] oximetry 2022-12-01 13:45:00 98 % [facility] respiratory rate 2022-12-01 13:45:00 18 /min [facility] blood pressure systolic 2022-12-01 13:45:00 132 mm[Hg] [facility] Systolic blood pressure 2022-09-16 19:17:00 169 mm[Hg] [facility] Diastolic blood pressure 2022-09-16 19:17:00 91 mm[Hg] [facility] Heart rate 2022-09-16 19:17:00 77 /min [facility] Body height 2022-09-16 19:17:00 157.5 cm [facility] Body weight 2022-09-16 19:17:00 49.714 kg [facility] BMI 2022-09-16 19:17:00 20.05 kg/m2 [facility] Systolic blood pressure 2022-08-11 19:04:00 153 mm[Hg] [facility] Diastolic blood pressure 2022-08-11 19:04:00 80 mm[Hg] [facility] Heart rate 2022-08-11 19:04:00 80 /min [facility] Body height 2022-08-11 19:04:00 160 cm [facility] Body weight 2022-08-11 19:04:00 51.574 kg [facility] BMI 2022-08-11 19:04:00 20.14 kg/m2 [facility] Systolic blood pressure 2022-07-12 13:51:00 144 mm[Hg] [facility] Diastolic blood pressure 2022-07-12 13:51:00 85 mm[Hg] [facility] Heart rate 2022-07-12 13:51:00 92 /min [facility] Body height 2022-07-12 13:51:00 157.5 cm [facility] Body weight 2022-07-12 13:51:00 52.663 kg [facility] BMI 2022-07-12 13:51:00 21.23 kg/m2 [facility] height 2022-04-28 11:00:00 63 [in_i] [facility] weight 2022-04-28 11:00:00 117.4 [lb_av] [facility] temperature 2022-04-28 11:00:00 97.9 [degF] [facility] bmi 2022-04-28 11:00:00 20.79 kg/m2 [facility] oximetry 2022-04-28 11:00:00 99 % [facility] respiratory rate 2022-04-28 11:00:00 18 /min [facility] blood pressure systolic 2022-04-28 11:00:00 146 mm[Hg] [facility] blood pressure diastolic 2022-04-28 11:00:00 69 mm[Hg] [facility] Systolic blood pressure 2022-04-19 15:43:00 144 mm[Hg] [facility] Diastolic blood pressure 2022-04-19 15:43:00 84 mm[Hg] [facility] Heart rate 2022-04-19 15:41:00 93 /min [facility] Body height 2022-04-19 15:41:00 157.5 cm [facility] Oxygen saturation in Arterial blood by Pulse oximetry 2022-04-19 15:41:00 98 /min [facility] Systolic blood pressure 2022-04-16 15:46:00 172 mm[Hg] MS pt. Pt in pain. No symptoms. The patient was advised to consult her PCP for her high BP values [facility] Diastolic blood pressure 2022-04-16 15:46:00 100 mm[Hg] MS pt. Pt in pain. No symptoms. The patient was advised to consult her PCP for her high BP values [facility] Heart rate 2022-04-16 15:39:00 84 /min [facility] Respiratory rate 2022-04-16 15:39:00 12 /min [facility] Body height 2022-04-16 15:39:00 157.5 cm [facility] Body weight 2022-04-16 15:39:00 68.04 kg [facility] BMI 2022-04-16 15:39:00 27.44 kg/m2 [facility] Oxygen saturation in Arterial blood by Pulse oximetry 2022-04-16 15:39:00 96 /min [facility] Systolic blood pressure 2022-04-06 15:24:42 165 mm[Hg] [facility] Diastolic blood pressure 2022-04-06 15:24:42 87 mm[Hg] [facility] Heart rate 2022-04-06 15:24:42 81 /min [facility] Body temperature 2022-04-06 15:24:42 36.72 Val [facility] Respiratory rate 2022-04-06 15:24:42 16 /min [facility] Oxygen saturation in Arterial blood by Pulse oximetry 2022-04-06 15:21:00 98 /min [facility] Body height 2022-04-06 14:06:00 157.5 cm [facility] Body weight 2022-04-06 14:06:00 68.04 kg [facility] BMI 2022-04-06 14:06:00 27.44 kg/m2 [facility] Systolic blood pressure 2022-03-19 14:27:00 131 mm[Hg] [facility] Diastolic blood pressure 2022-03-19 14:27:00 79 mm[Hg] [facility] Heart rate 2022-03-19 14:27:00 91 /min [facility] Body height 2022-03-19 14:27:00 152.4 cm [facility] Body weight 2022-03-19 14:27:00 52.617 kg [facility] BMI 2022-03-19 14:27:00 22.65 kg/m2 [facility] Oxygen saturation in Arterial blood by Pulse oximetry 2022-03-19 14:27:00 96 /min [facility] Systolic blood pressure 2021-11-11 15:20:00 148 mm[Hg] [facility] Diastolic blood pressure 2021-11-11 15:20:00 88 mm[Hg] [facility] Heart rate 2021-11-11 15:19:00 101 /min [facility] Body height 2021-11-11 15:19:00 160 cm [facility] Body weight 2021-11-11 15:19:00 51.256 kg [facility] BMI 2021-11-11 15:19:00 20.02 kg/m2 [facility] Body height 2021-10-22 13:17:00 160 cm [facility] Body weight 2021-10-22 13:17:00 52.164 kg [facility] BMI 2021-10-22 13:17:00 20.37 kg/m2 [facility] Systolic blood pressure 2021-10-13 18:33:00 116 mm[Hg] [facility] Diastolic blood pressure 2021-10-13 18:33:00 72 mm[Hg] [facility] Heart rate 2021-10-13 18:33:00 96 /min [facility] Body height 2021-10-13 18:33:00 160 cm [facility] Body weight 2021-10-13 18:33:00 52.164 kg [facility] BMI 2021-10-13 18:33:00 20.37 kg/m2 [facility] Procedures Procedure Date / Time Performed Performing Clinicia n Source XR ELBOW >3 VW LEFT 2022-12-27 19:05:08 Parker Sierra [facility] CT LUNG CANCER SCREENING 2022 15:11:34 Ramo Robertson [facility] CONSENT/REFUSAL FOR DIAGNOSIS AND TREATMENT 2022 14:53:22 Doctor Unassigned, [place] [facility] ASSIGNMENT OF BENEFITS 2022 14:52:55 Docto r Unassigned, [place] [facility] PHYSICIAN ORDERS 2022-10-12 05:01:00 Doctor Unas signed, [place] [facility] MR KNEE LEFT WO CONTRAST 2022-08-24 15:09:19 Rosalina Dorantes [facility] CONSENT/REFUSAL FOR DIAGNOSIS AND TREATMENT 2022-08-24 13:32:43 Doctor Unassigned, [place] [facility] REFERRAL- REQUEST/RESPONSE 2022-06-28 05:01:00 Doctor Unassigned, [place] [facility] BI ULTRASOUND BREAST COMPLETE RIGHT 2022-06-02 13:24:44 Requisition, Paper [facility] PVR 2022-04-28 00:00:00 [facility] CT CERVICAL SPINE WO CONTRAST 2022-04-06 15:10:00 Beni Steven [facility] CT HEAD WO CONTRAST 2022-04-06 15:10:00 Ortega Steven [facility] CONSENT/REFUSAL FOR DIAGNOSIS AND TREATMENT 2022-04-06 14:03:51 Doctor Unassigned, [place] [facility] DEXA AXIAL (HIP AND SPINE) 2022-04-01 18:15:58 Requisition, Paper [facility] CONSENT/REFUSAL FOR DIAGNOSIS AND TREATMENT 2022-03-19 13:39:45 Doctor Unassigned, [place] [facility] REFERRAL- REQUEST/RESPONSE 2022-03-02 06:01:00 Doctor Unassigned, [place] [facility] DSU PRE-OP 2021-10-28 05:01:00 Doctor Unass igned, [place] [facility] CT LUNG CANCER SCREENING 2021-10-19 19:06:00 [facility] DSU PRE-OP 2021-10-07 05:01:00 Doctor Unass igned, [place] [facility] EXTERNAL MAMMOGRAM 2020-08-19 16:02:00 Doctor Un assigned, [place] [facility] EXTERNAL FIT DNA 2020-06-26 00:25:00 Doctor Unas signed, [place] [facility] Encounters Start Date/Time End Date/Time Encounter Type Admission Type Attending [facility] Facility Care Department Encounter ID Source 2022-04-23 07:34:00 Outpatient Ramo Robertson [facility] [id number] [facility] 2022-03-02 10:20:00 Outpatient Ramo Robertson [facility] [id number] [facility] 2023-03-10 00:00:00 2023-03-10 00:00:00 Outpatient GC_[email or web address] diyala_S PRIV PRIV [id number] [facility] 2023-03-07 00:00:00 2023-03-07 00:00:00 Outpatient GC_[email or web address]_Ka di[place]ala_S PRIV PRIV [id number] [facility] 2023-03-01 00:00:00 2023-03-01 00:00:00 Outpatient GC_GCBZW_Ka diyala_S PRIV PRIV [id number] [facility] 2023-01-18 10:09:44 2023-01-18 23:59:00 Outpatient R RADIOLOGY [facility] [id number] [facility] 2023-01-18 10:09:44 2023-01-18 23:59:00 Hospital Encounter Radiology [facility] [id number] [facility] 2023-01-17 00:00:00 2023-01-17 00:00:00 Outpatient [id number] diyala_S PRIV PRIV [id number] [facility] 2023-01-12 00:00:00 2023-01-12 00:00:00 Outpatient [email or web address]_Ka diyala_S PRIV PRIV [id number] [facility] 2022-12-27 12:48:22 2022-12-27 23:59:00 Outpatient R RADIOLOGY [facility] [id number] [facility] 2022-12-27 12:45:00 2022-12-27 23:59:00 Hospital Encounter Radiology [facility] ..840.114 350.1.13.10 4.2.7.2.686 [id number] [facility] 2022-12-15 00:00:00 2022-12-15 00:00:00 Outpatient GC_GCBZW_Ka diyala_S PRIV PRIV [id number] [facility] 2022-12-13 00:00:00 2022-12-13 00:00:00 Flora Silva [facility] 1..840.114 350.1.13.10 4.2.7.2.686 [id number] [facility] 2022-12-03 00:00:00 2022-12-03 00:00:00 Outpatient GC_GCBZW_Ka barry_S [facility] [id number] [facility] 2022-12-01 00:00:00 2022-12-01 00:00:00 OFFICE VISIT ESTAB PT LEVEL 3 STLMLC STLMLC [id number] [facility] 2022-11-10 00:00:00 2022-11-10 00:00:00 Case Management Elizabeth George 1.840.114 350.1.13.10 4.2.7.2.686 [id number] [id number] [facility] 2022-11-08 00:00:00 2022-11-08 00:00:00 Refyue Murray, [facility] 1.0.114 350.1.13.10 4.2.7.2.686 [id number] [facility] 2022-11-02 00:00:00 2022-11-02 00:00:00 Case Management Elizabeth George 1.840.114 350.1.13.10 4.2.7.2.686 [id number] 086 [id number] [facility] 2022-11-02 00:00:00 2022-11-02 00:00:00 Patient Secure Msg Doctor Unassigned, [place]-Arcade [facility] 1.840.114 350.1.13.10 4.2.7.2.686 [id number] [facility] 2022-10-26 00:00:00 2022-10-26 00:00:00 Case Management Elizabeth George 1.840.114 350.1.13.10 4.2.7.2.686 [id number] [id number] [facility] 2022 09:53:04 2022 23:59:00 Outpatient R RADIOLOGY [facility] [id number] [facility] 2022 09:53:04 2022 23:59:00 Hospital Encounter Radiology [facility] 1.2.840.114 350.1.13.10 4.2.7.2.686 [id number] [facility] 2022-10-14 00:00:00 2022-10-14 00:00:00 Refill Flora Murray [facility] 1.2840.114 350.1.13.10 4.2.7.2.686 [id number] 044 [id number] [facility] 2022-10-12 12:15:00 2022-10-12 12:30:00 Electrical Products Engineer Visit Pob, Adc Lab Main Vinita Greenwood [facility] PROFESSIO NAL BUILDING 1.2840.114 350.1.13.10 4.2.7.2.686 [id number] [facility] 2022-10-12 12:15:00 2022-10-12 12:15:00 Outpatient R VINITA GREENWOOD [facility] [id number] [facility] 2022-10-12 00:00:00 2022-10-12 00:00:00 Orders Only Doctor Unassigned, [place]Arcade [facility] 1.2840.114 350.1.13.10 4.2.7.2.686 [id number] [id number] [facility] 2022-09-22 00:00:00 2022-09-22 00:00:00 Case Management Elizabeth George 1.2840.114 350.1.13.10 4.2.7.2.686 [id number] [facility] 2022-09-16 14:45:00 2022-09-16 15:00:00 Office Visit Patton Tremaine Bernie [facility] 1.840.114 350.1.13.10 4.2.7.2.686 [id number] [facility] 2022-09-16 14:45:00 2022-09-16 14:45:00 Outpatient R TREMAINE PATTON [facility] [id number] [facility] 2022-09-13 00:00:00 2022-09-13 00:00:00 Refill Flora Murray [facility] 1.840.114 350.1.13.10 4.2.7.2.686 [id number] 044 [id number] [facility] 2022-09-10 00:00:00 2022-09-10 00:00:00 Refill Shaan Mayberry [facility]?TRISTA [facility] 1.84.114 350.1.13.10 4.2.7.2.686 [id number] 044 [id number] [facility] 2022-08-24 08:33:05 2022-08-24 23:59:00 Outpatient R ROSALINA DORANTES [facility] [id number] [facility] 2022-08-24 08:33:05 2022-08-24 23:59:00 Hospital Encounter Rosalina Dorantes [facility] 1.84.114 350.1.13.10 4.2.7.2.686 [id number] [facility] 2022-08-24 00:00:00 2022-08-24 00:00:00 Orders Only Doctor Unassigned, [place]Arcade [facility] 1.2840.114 350.1.13.10 4.2.7.2.686 [id number] [facility] 2022-08-16 00:00:00 2022-08-16 00:00:00 Refill Flora Murray [facility] UVALDO?TRISTA [facility] 1.84114 350.1.13.10 4.2.7.2.686 [id number] 044 [id number] [facility] 2022-08-16 00:00:00 2022-08-16 00:00:00 Refill Shaan Mayberry [facility] U[facility]DO?[facility] 1.114 350.1.13.10 4.2.7.2.686 [id number] [id number] [facility] 2022-08-16 00:00:00 2022-08-16 00:00:00 Refill Shaan Mayberry [facility] U[facility]DO?[facility] 1.84.114 350.1.13.10 4.2.7.2.686 [id number] [id number] [facility] 2022-08-11 14:00:00 2022-08-11 16:16:20 Outpatient R ROSALINA DORANTES [facility] [id number] [facility] 2022-08-11 14:00:00 2022-08-11 16:16:20 Office Visit Rosalina Dorantes [facility] 1.84.114 350.1.13.10 4.2.7.2.686 [id number] [facility] 2022-08-11 00:00:00 2022-08-11 00:00:00 (PROC) Procedure STLMLC STLMLC [id number] [facility] 2022-07-14 00:00:00 2022-07-14 00:00:00 Refill Flora Murray [facility] UVALDO?TRISTA [facility] 1.84.114 350.1.13.10 4.2.7.2.686 [id number] 044 [id number] [facility] 2022-07-12 09:45:00 2022-07-12 10:00:00 Electrical Products Engineer Visit Lab, Flavio Vogt Shaan Mayberry [facility] 1.84.114 350.1.13.10 4.2.7.2.686 [id number] [facility] 2022-07-12 09:20:00 2022-07-12 09:20:00 Office Visit Shaan Mayberry [facility] 1..114 350.1.13.10 4.2.7.2.686 [id number] [id number] [facility] 2022-07-12 09:20:00 2022-07-12 09:18:30 Outpatient R JEFE SHAAN TINAJERO [facility] [id number] [facility] 2022-06-28 00:00:00 2022-06-28 00:00:00 Orders Only Doctor Unassigned, [place] [facility] 1..114 350.1.13.10 4.2.7.2.686 [id number] [facility] 2022-06-10 00:00:00 2022-06-10 00:00:00 (TEL) STLMLC STLC [id number] [facility] 2022-06-02 07:23:06 2022-06-02 23:59:00 Outpatient R RADIOLOGY [facility] [id number] [facility] 2022-06-02 07:23:06 2022-06-02 23:59:00 Hospital Encounter Radiology [facility] 1..114 350.1.13.10 4.2.7.2.686 [id number] [facility] 2022-05-21 15:00:00 2022-05-21 15:00:00 Outpatient R JELANI RESENDEZ [facility] [id number] [facility] 2022-05-05 00:00:00 2022-05-05 00:00:00 Telephone [facility] 1..840.114 350.1.13.10 4.2.7.2.686 [id number] [facility] 2022-05-01 00:00:00 2022-05-01 00:00:00 (TEL) STLMLC STLMLC [id number] [facility] 2022-04-28 00:00:00 2022-04-28 00:00:00 OFFICE VISIT NEW PT LEVEL 3 STLMLC STLMLC [id number] [facility] 2022-04-22 00:00:00 2022-04-22 00:00:00 RefFlora Mireles [facility] 1..840.114 350.1.13.10 4.2.7.2.686 [id number] [facility] 2022-04-21 00:00:00 2022-04-21 00:00:00 Shaan Singletary [facility] 1.2.840.114 350.1.13.10 4.2.7.2.686 [id number] [id number] [facility] 2022-04-19 10:20:00 2022-04-19 11:01:49 Outpatient SHAAN VAUGHAN HOWARD [facility] [id number] [facility] 2022-04-19 10:20:00 2022-04-19 11:01:49 Office Visit hSaan Mayberry [facility]?REFUGIOYoel [facility] 1.2.840.114 350.1.13.10 4.2.7.2.686 [id number] [id number] [facility] 2022-04-16 09:30:00 2022-04-16 10:29:06 Outpatient R JELANI RESENDEZ [facility] [id number] [facility] 2022-04-16 09:30:00 2022-04-16 10:29:06 Office Visit Jelani Resendez [facility] 1.2.840.114 350.1.13.10 4.2.7.2.686 [id number] [facility] 2022-04-16 09:00:00 2022-04-16 09:00:00 Outpatient R JELANI RESENDEZ [facility] [id number] [facility] 2022-04-06 08:15:00 2022-04-06 10:55:00 Emergency X [facility] [id number] [facility] 2022-04-06 08:15:00 2022-04-06 10:55:00 Emergency Beni Steven [facility] 1.2.840.114 350.1.13.10 4.2.7.2.686 [id number] [facility] 2022-04-01 11:39:42 2022-04-01 23:59:00 Hospital Encounter Radiology [facility] 1.2.840.114 350.1.13.10 4.2.7.2.686 [id number] [facility] 2022-04-01 11:39:04 2022-04-01 23:59:00 Outpatient R RADIOLOGY [facility] [id number] [facility] 2022-04-01 11:39:04 2022-04-01 23:59:00 Hospital Encounter Radiology [facility] 1.2.840.114 350.1.13.10 4.2.7.2.686 [id number] [facility] 2022-03-19 08:20:00 2022-03-19 08:53:24 Outpatient R SHAAN MAYBERRY HOWARD [facility] [id number] [facility] 2022-03-19 08:20:00 2022-03-19 08:53:24 Office Visit Shaan Mayberry [facility] 1.2840.114 350.1.13.10 4.2.7.2.686 [id number] [facility] 2022-03-19 00:00:00 2022-03-19 00:00:00 Orders Only Doctor Unassigned, [place]Arcade [facility] 1.20.114 350.1.13.10 4.2.7.2.686 [id number] [facility] 2022-03-03 00:00:00 2022-03-03 00:00:[address] [facility] 1.20.114 350.1.13.10 4.2.7.2.686 [id number] [id number] [facility] 2022-03-02 00:00:00 2022-03-02 00:00:00 Orders Only Doctor Unassigned, [place] [facility] 1.2840.114 350.1.13.10 4.2.7.2.686 [id number] [facility] 2022-01-14 00:00:00 2022-01-14 00:00:00 Telephone Team, [facility] 1.2840.114 350.1.13.10 4.2.7.2.686 [id number] [facility] 2022-01-12 00:00:00 2022-01-12 00:00:00 Telephone Flora Murray [facility] 1.2840.114 350.1.13.10 4.2.7.2.686 [id number] [id number] [facility] 2022-01-12 00:00:00 2022-01-12 00:00:00 Telephone [facility] 1.84.114 350.1.13.10 4.2.7.2.686 [id number] 044 [id number] [facility] 2021-11-12 09:30:00 2021-11-12 10:43:41 Outpatient R TREMAINE PATTON [facility] [id number] [facility] 2021-11-12 09:30:00 2021-11-12 09:45:00 Office Visit Tremaine Patton [facility] UVALDO?TRISTA [facility] 1.840.114 350.1.13.10 4.2.7.2.686 [id number] [facility] 2021-11-11 10:30:00 2021-11-11 11:01:04 Outpatient R FLORA MURRAY [facility] [id number] [facility] 2021-11-11 10:30:00 2021-11-11 11:00:00 Office Visit Flora Murray [facility] UVALDO?TRISTA [facility] 1.84.114 350.1.13.10 4.2.7.2.686 [id number] [facility] 2021-11-10 00:00:00 2021-11-10 00:00:00 Telephone Rosalina Dorantes [facility] UVALDO?[facility] 1.840.114 350.1.13.10 4.2.7.2.686 [id number] [facility] 2021-11-09 00:00:00 2021-11-09 00:00:00 Refill Flora Murray [facility] UVALDO?TRISTA [facility] 1.84.114 350.1.13.10 4.2.7.2.686 [id number] [id number] [facility] 2021-11-05 00:00:00 2021-11-05 00:00:00 Refill Terri [facility] OFFICE BUILDING 1..840.114 350.1.13.10 4.2.7.2.686 [id number] [facility] 2021-11-03 11:00:00 2021-11-03 11:00:00 Outpatient R ELFEGO [facility] [id number] [facility] 2021-11-03 11:00:00 2021-11-03 11:00:00 Outpatient R ELFEGO [facility] [id number] [facility] 2021-11-03 11:00:00 2021-11-03 11:00:00 Outpatient R ELFEGO [facility] [id number] [facility] 2021-11-03 11:00:00 2021-11-03 11:00:00 Outpatient R ELFEGO [facility] [id number] [facility] 2021-11-02 00:00:00 2021-11-02 00:00:00 Telephone Flora [facility] 1.840.114 350.1.13.10 4.2.7.2.686 [id number] [facility] 2021-10-28 00:00:00 2021-10-28 00:00:00 Outpatient R ROSALINA DORANTES [facility] [id number] [facility] 2021-10-28 00:00:00 2021-10-28 00:00:00 Telephone Rosalina Dorantes [facility] BU[facility] 1..840.114 350.1.13.10 4.2.7.2.686 [id number] [facility] 2021-10-28 00:00:00 2021-10-28 00:00:00 Orders Only Doctor Unassigned, [place]Arcade [facility] 1.840.114 350.1.13.10 4.2.7.2.686 [id number] [facility] 2021-10-27 00:00:00 2021-10-27 00:00:00 Telephone Flora [facility] 1..840.114 350.1.13.10 4.2.7.2.686 [id number] 044 [id number] [facility] 2021-10-22 09:15:00 2021-10-22 09:30:00 Electrical Products Engineer Visit Lab, Rosalina Miller [facility] 1..840.114 350.1.13.10 4.2.7.2.686 [id number] [facility] 2021-10-22 08:45:00 2021-10-22 08:45:00 Office Visit Rosalina Dorantes [facility] 1..840.114 350.1.13.10 4.2.7.2.686 [id number] [facility] 2021-10-22 08:45:00 2021-10-22 08:44:58 Outpatient R ROSALINA DORANTES [facility] [id number] [facility] 2021-10-22 00:00:00 2021-10-22 00:00:00 Telephone HuanFlora benitez [facility] 1..840.114 350.1.13.10 4.2.7.2.686 [id number] [id number] [facility] 2021-10-20 00:00:00 2021-10-20 00:00:00 Refill Flora [facility] 1..840.114 350.1.13.10 4.2.7.2.686 [id number] [id number] [facility] 2021-10-19 13:28:47 2021-10-19 23:59:00 Outpatient FLORA HOLGUIN [facility] [id number] [facility] 2021-10-19 10:00:00 2021-10-19 23:59:[address] [facility] 1..840.114 350.1.13.10 4.2.7.2.686 [id number] [facility] 2021-10-13 13:30:00 2021-10-13 13:45:00 Office Visit Terri [facility] 1..840.114 350.1.13.10 4.2.7.2.686 [id number] [facility] 2021-10-13 13:30:00 2021-10-13 13:30:00 Outpatient FLORA HOLGUIN [facility] [id number] [facility] 2021-10-08 00:00:00 2021-10-08 00:00:00 Telephone Rosalina Dorantes [facility] 1..840.114 350.1.13.10 4.2.7.2.686 [id number] [facility] 2021-10-07 00:00:00 2021-10-07 00:00:00 Outpatient R ROSALINA DORANTES [facility] [id number] [facility] 2021-10-07 00:00:00 2021-10-07 00:00:00 Telephone [facility] 1..840.114 350.1.13.10 4.2.7.2.686 [id number] [facility] 2021-10-07 00:00:00 2021-10-07 00:00:00 Orders Only Doctor Unassigned, Arden-Arcade [facility] 1.2840.114 350.1.13.10 4.2.7.2.686 [id number] [facility] 2021-10-06 00:00:00 2021-10-06 00:00:00 Telephone Rosalina Dorantes [facility] 1.84.114 350.1.13.10 4.2.7.2.686 [id number] [facility] 2021-10-02 09:15:00 2021-10-02 09:30:00 Electrical Products Engineer Visit Pob, Adc Lab Main Rosalina Dorantes [facility] PROFESSIO NAL BUILDING 1.84.114 350.1.13.10 4.2.7.2.686 [id number] [facility] 2021-10-02 08:51:52 2021-10-02 08:51:52 Outpatient R TREMAINE PATTON [facility] [id number] [facility] 2021-10-02 08:51:52 2021-10-02 08:51:52 Hospital Encounter Tremaine Patton [facility] 1.2.114 350.1.13.10 4.2.7.2.686 [id number] [facility] 2021-10-01 00:00:00 2021-10-01 00:00:00 Flora Silva [facility] 1.84.114 350.1.13.10 4.2.7.2.686 [id number] [facility] 2021-09-30 13:30:00 2021-09-30 13:45:00 Office Visit Flora Murray [facility] UVALDO?[facility] 1.2.840.114 350.1.13.10 4.2.7.2.686 [id number] [facility] 2021-09-30 13:30:00 2021-09-30 13:30:00 Outpatient R TERRI [facility] [id number] [facility] 2021-09-30 13:30:00 2021-09-30 13:30:00 Outpatient R TRERI [facility] [id number] [facility] 2021-09-28 00:00:00 2021-09-28 00:00:00 Telephone Flora Murray [facility] UVALDO?[facility] 1.2.840.114 350.1.13.10 4.2.7.2.686 [id number] [facility] 2021-09-23 14:30:00 2021-09-23 15:58:42 Outpatient R POOJA TREMAINE [facility] [id number] [facility] 2021-09-23 14:30:00 2021-09-23 15:58:42 [facility] [id number] [facility] 2021-09-23 14:30:00 2021-09-23 14:30:00 Out[facility] [id number] [facility] 2021-09-17 00:00:00 2021-09-17 00:00:00 [facility] 1.2.840.114 350.1.13.10 4.2.7.2.686 [id number] [facility] 2021-09-16 00:00:00 2021-09-16 00:00:00 Telephone [facility] 1.84.114 350.1.13.10 4.2.7.2.686 [id number] [facility] 2021-09-16 00:00:00 2021-09-16 00:00:00 Telephone Lakisha Pattont [facility] UVALDO?[facility] 1.840.114 350.1.13.10 4.2.7.2.686 [id number] [facility] 2021-09-14 13:30:00 2021-09-14 14:15:24 Outpatient R [facility] [id number] [facility] 2021-09-14 13:30:00 2021-09-14 14:15:24 Outpatient R [facility] [id number] [facility] 2021-09-14 13:30:00 2021-09-14 14:00:00 Office Visit Palmira [facility] 1.84114 350.1.13.10 4.2.7.2.686 [id number] [facility] 2021-09-14 13:30:00 2021-09-14 13:30:00 Outpatient R [facility] [id number] [facility] 2021-09-14 00:00:00 2021-09-14 00:00:00 Telephone Tremaine Patton [facility] 1.84114 350.1.13.10 4.2.7.2.686 [id number] [facility] 2021-09-08 00:00:00 2021-09-08 00:00:00 Telephone Flora Murray [facility] 1.84.114 350.1.13.10 4.2.7.2.686 [id number] [facility] 2021-09-06 00:00:00 2021-09-06 00:00:00 Patient Secure Msg Doctor Unassigned, [place] [facility] 1..840.114 350.1.13.10 4.2.7.2.686 [id number] [facility] 2021-09-01 16:00:00 2021-09-01 16:29:33 Outpatient Agnieszka PATTON [facility] [id number] [facility] 2021-09-01 16:00:00 2021-09-01 16:29:33 Office Visit Tremaine Patton [facility] 1.2.840.114 350.1.13.10 4.2.7.2.686 [id number] [facility] 2021-09-01 16:00:00 2021-09-01 16:00:00 Outpatient Agnieszka PATTON [facility] [id number] [facility] 2021-09-01 16:00:00 2021-09-01 16:00:00 Outpatient Agnieszka PATTON [facility] [id number] [facility] 2021-08-27 15:00:00 2021-08-27 15:00:00 Outpatient Agnieszka PATTON [facility] [id number] [facility] 2021-08-27 09:45:00 2021-08-27 10:00:00 Office Visit Flora Murray [facility] 1..840.114 350.1.13.10 4.2.7.2.686 [id number] [facility] 2021-08-27 09:45:00 2021-08-27 09:45:00 Outpatient FLORA HOLGUIN [facility] [id number] [facility] 2021-08-25 15:40:00 2021-08-25 16:04:58 Outpatient R SHAAN MAYBERRY HOWARD [facility] [id number] [facility] 2021-08-25 15:40:00 2021-08-25 16:04:58 [facility] 1.2.840.114 350.1.13.10 4.2.7.2.686 [id number] [facility] 2021-08-25 15:40:00 2021-08-25 16:04:58 Outpatient R SHAAN MAYBERRY HOWARD [facility] [id number] [facility] 2021-08-07 00:00:00 2021-08-07 00:00:00 Telephone Shaan Mayberry [facility] UVALDO?[facility] 1.2.840.114 350.1.13.10 4.2.7.2.686 [id number] [facility] 2021-08-06 00:00:00 2021-08-06 00:00:00 Telephone Flora Murray [facility] UVALDO?[facility] 1.2.840.114 350.1.13.10 4.2.7.2.686 [id number] [facility] 2021-07-28 00:00:00 2021-07-28 00:00:00 Refill Flora Murray [facility] UVALDO?[facility] 1.2.840.114 350.1.13.10 4.2.7.2.686 [id number] [facility] 2021-07-27 10:44:54 2021-07-27 23:59:00 Outpatient R FLORA MURRAY [facility] [id number] [facility] 2021-07-27 13:30:00 2021-07-27 13:30:00 Outpatient R (TECH)FLAVIO-DB [facility] [id number] [facility] 2021-07-27 10:00:00 2021-07-27 10:15:00 Office Visit Flora Murray [facility] UVALDO?[facility] 1..840.114 350.1.13.10 4.2.7.2.686 [id number] [facility] 2021-07-27 10:00:00 2021-07-27 10:00:00 Outpatient R FLORA MURRAY [facility] [id number] [facility] 2021-07-23 11:15:00 2021-07-23 11:30:00 Electrical Products Engineer Visit [facility] 1..840.114 350.1.13.10 4.2.7.2.686 [id number] [facility] 2021-07-23 11:15:00 2021-07-23 11:15:00 Outpatient R FLACOJELANI GAUTHIER [facility] [id number] [facility] 2021-07-23 11:15:00 2021-07-23 11:15:00 Outpatient R FLACOJELANI GAUTHIER [facility] [id number] [facility] 2021-07-23 11:15:00 2021-07-23 11:15:00 Outpatient R JELANI SAM [facility] [id number] [facility] 2021-07-23 09:00:00 2021-07-23 09:00:00 [facility] [id number] [facility] 2021-07-21 10:15:00 2021-07-21 10:49:27 Office Visit Alireza Telles [facility] 1..840.114 350.1.13.10 4.2.7.2.686 [id number] [facility] 2021-07-21 10:15:00 2021-07-21 10:49:27 [facility] [id number] [facility] 2021-07-21 10:15:00 2021-07-21 10:15:00 Outpatient ALIREZA DAVE [facility] [id number] [facility] 2021-06-26 15:20:00 2021-06-26 16:13:26 Outpatient Agnieszka JEFE, SHAAN TINAJERO [facility] [id number] [facility] 2021-06-26 15:20:00 2021-06-26 16:13:26 [facility] 1..840.114 350.1.13.10 4.2.7.2.686 [id number] [facility] 2021-06-26 15:20:00 2021-06-26 16:13:26 Outpatient Agnieszka JEFE, SHAAN TINAJERO [facility] [id number] [facility] 2021-06-26 15:20:00 2021-06-26 15:20:00 Outpatient Agnieszka JEFE, SHAAN TINAJERO [facility] [id number] [facility] 2021-06-26 15:20:00 2021-06-26 15:20:00 Outpatient Agnieszka JEFE SHAAN TINAJERO [facility] [id number] [facility] 2021-06-25 15:00:00 2021-06-25 16:42:30 Outpatient ALIREZA DAVE [facility] [id number] [facility] 2021-06-25 15:00:00 2021-06-25 16:42:30 [facility] 1..840.114 350.1.13.10 4.2.7.2.686 [id number] [facility] 2021-06-25 15:00:00 2021-06-25 15:00:00 Outpatient Agnieszka ALIREZA TELLES [facility] [id number] [facility] 2021-06-25 00:00:00 2021-06-25 00:00:00 Orders Only Doctor Unassigned, [place] [facility] 1..840.114 350.1.13.10 4.2.7.2.686 [id number] [facility] 2021-06-18 00:00:00 2021-06-18 00:00:00 Patient Secure Msg Doctor Unassigned, [place] [facility] 1.2.840.114 350.1.13.10 4.2.7.2.686 [id number] [facility] 2021-06-16 14:27:19 2021-06-16 23:59:00 Outpatient FLORA HOLGUIN [facility] [id number] [facility] 2021-06-16 14:27:19 2021-06-16 23:59:00 Outpatient FLORA HOLGUIN [facility] [id number] [facility] 2021-06-16 14:30:00 2021-06-16 14:30:00 Outpatient FLORA HOLGUIN [facility] [id number] [facility] 2021-06-16 14:15:00 2021-06-16 14:24:58 Office Visit Flora Murray [facility] 1..840.114 350.1.13.10 4.2.7.2.686 [id number] [facility] 2021-06-09 11:15:00 2021-06-09 11:15:00 Outpatient FLORA HOLGUIN [facility] [id number] [facility] 2021-06-09 11:15:00 2021-06-09 11:15:00 Outpatient FLORA HOLGUIN [facility] [id number] [facility] 2021-06-09 11:15:00 2021-06-09 11:15:00 Outpatient FLORA HOLGUIN [facility] [id number] [facility] 2021-05-26 11:15:00 2021-05-26 12:14:17 [facility] [id number] [facility] 2021-05-26 11:15:00 2021-05-26 12:14:17 Office Visit Elfego [facility] 1.840.114 350.1.13.10 4.2.7.2.686 [id number] [facility] 2021-05-26 11:15:00 2021-05-26 12:14:17 Outpatient Agnieszka TELLES [facility] [id number] [facility] 2021-05-12 11:30:00 2021-05-12 11:30:00 Outpatient Agnieszka TELLES [facility] [id number] [facility] 2021-04-07 13:15:00 2021-04-07 13:46:08 Outpatient FLORA HOLGUIN [facility] [id number] [facility] 2021-04-03 00:00:00 2021-04-03 00:00:00 Patient Secure Msg Doctor Unassigned, [place] [facility] 1..840.114 350.1.13.10 4.2.7.2.686 [id number] [facility] 2021-03-10 09:30:00 2021-03-10 10:00:00 Office Visit TerriFlora Jarekdeni [facility] 1..840.114 350.1.13.10 4.2.7.2.686 [id number] [facility] 2021-03-10 09:30:00 2021-03-10 09:30:00 Outpatient FLORA HOLGUIN [facility] [id number] [facility] 2021-02-26 09:30:00 2021-02-26 09:30:00 Outpatient ALIREZA DAVE [facility] [id number] [facility] 2021-02-26 09:30:00 2021-02-26 09:30:00 Outpatient R ELFEGO ALIREZA [facility] [id number] [facility] 2021-01-27 08:30:00 2021-01-27 11:11:54 Outpatient Agnieszka TELLES ALIREZA [facility] [id number] [facility] 2021-01-27 08:30:00 2021-01-27 09:00:00 Office Visit Alireza Telles [place] [facility] 1.840.114 350.1.13.10 4.2.7.2.686 [id number] [facility] 2021-01-27 08:30:00 2021-01-27 08:30:00 Outpatient ALIREZA DAVE [facility] [id number] [facility] 2021-01-27 00:00:00 2021-01-27 00:00:00 Orders Only Doctor Unassigned, [place] [facility] .840.114 350.1.13.10 4.2.7.2.686 [id number] [facility] 2021-01-14 00:00:00 2021-01-14 00:00:00 Telephone Alireza Telles [facility] 1.840.114 350.1.13.10 4.2.7.2.686 [id number] [facility] 2021-01-13 00:00:00 2021-01-13 00:00:00 Telephone Elfego [facility] 1.840.114 350.1.13.10 4.2.7.2.686 [id number] [facility] 2021-01-13 00:00:00 2021-01-13 00:00:[facility] 1.2.840.114 350.1.13.10 4.2.7.2.686 [id number] [facility] 2020-12-23 00:00:00 2020-12-23 00:00:00 [facility] 1.2.840.114 350.1.13.10 4.2.7.2.686 [id number] [facility] 2020-11-04 10:15:00 2020-11-04 10:15:00 Outpatient R ELFEGO [facility] [id number] [facility] 2020-11-04 10:15:00 2020-11-04 10:15:00 Outpatient R ELFEGO [facility] [id number] [facility] 2020-11-04 10:15:00 2020-11-04 10:15:00 Outpatient R ELFEGO [facility] [id number] [facility] 2020-10-30 16:45:00 2020-10-30 17:08:07 Outpatient R ELFEGO [facility] [id number] [facility] 2020-10-30 16:34:56 2020-10-30 17:08:07 [facility] 1.2.840.114 350.1.13.10 4.2.7.2.686 [id number] [facility] 2020-10-30 16:45:00 2020-10-30 16:45:00 Outpatient R ELFEGO [facility] [id number] [facility] 2020-10-23 13:30:00 2020-10-23 13:30:00 Outpatient ALIREZA DAVE [facility] [id number] [facility] 2020-10-16 00:00:00 2020-10-16 00:00:00 [facility] 1.2.840.114 350.1.13.10 4.2.7.2.686 [id number] [facility] 2020-09-25 13:30:00 2020-09-25 14:04:55 Outpatient ALIREZA DAVE [facility] [id number] [facility] 2020-09-25 13:30:00 2020-09-25 13:30:00 Outpatient ALIREZA DAVE [facility] [id number] [facility] 2020-09-25 00:00:00 2020-09-25 00:00:00 [facility] 1.2.840.114 350.1.13.10 4.2.7.2.686 [id number] [facility] 2020-09-23 09:00:00 2020-09-23 09:00:00 Outpatient ALIREZA DAVE [facility] [id number] [facility] 2020-09-23 09:00:00 2020-09-23 09:00:00 Outpatient ALIREZA DAVE [facility] [id number] [facility] 2020-08-12 10:00:00 2020-08-12 10:00:00 Outpatient ALIREZA DAVE [facility] [id number] [facility] 2020-08-12 10:00:00 2020-08-12 09:03:44 Outpatient ALIREZA DAVE [facility] [id number] [facility] 2020-07-31 09:00:00 2020-07-31 09:00:00 Outpatient ALIREZA DAVE [facility] [id number] [facility] 2020-07-31 09:00:00 2020-07-31 09:00:00 Outpatient R ALIREZA TELLES [facility] [id number] [facility] 2020-07-21 11:00:00 2020-07-21 11:45:19 Outpatient R GWEN ZARATE [facility] [id number] [facility] 2020-07-21 11:00:00 2020-07-21 11:00:00 [facility] [id number] 2020-04-30 11:45:00 2020-04-30 11:45:00 Outpatient R JELANI JOSHI [facility] [id number] [facility] 2019-12-27 00:00:00 2019-12-27 00:00:00 Outpatient R IRAJ VINCENT [facility] [id number] [facility] 2019-10-11 11:59:54 2019-10-11 23:59:00 Hospital Encounter Radiology [facility] 1.840.114 350.1.13.10 4.2.7.2.686 [id number] 2019-10-11 11:51:34 2019-10-11 12:06:34 Electrical Products Engineer Visit Pob, [facility] Main [facility] 1..840.114 350.1.13.10 4.2.7.2.686 [id number] 2019-10-11 12:00:00 2019-10-11 12:00:00 Outpatient R PRO PELAYO [facility] [id number] [facility] 2019-10-11 00:00:00 2019-10-11 00:00:00 Outpatient R RADIOLOGY [facility] [id number] [facility] 2019-10-11 00:00:00 2019-10-11 00:00:00 Orders Only Doctor Unassigned, [place] [facility] 1.2.840.114 350.1.13.10 4.2.7.2.686 [id number] 2019-03-08 10:54:18 2019-03-08 11:09:18 Office Visit PattonTremaine Bernie [facility] le[facility] Patel 1.2.840.114 350.1.13.10 4.2.7.2.686 [id number] 2019-03-01 11:30:00 2019-03-01 11:30:00 Outpatient Agnieszka DORANTES ROSALINA [facility] [id number] [facility] 2019-02-24 00:00:00 2019-02-24 00:00:00 Orders Only Doctor Unassigned, [place] [facility] 1.2.840.114 350.1.13.10 4.2.7.2.686 [id number] 2019-02-23 00:00:00 2019-02-23 00:00:00 Orders Only Doctor Unassigned, [place] [facility] 1.2.840.114 350.1.13.10 4.2.7.2.686 [id number] 2018-05-24 08:33:00 2018-05-24 08:33:00 Outpatient [facility] Medicine [facility] [id number] [facility] 2018-04-26 17:46:00 2018-04-26 17:46:00 [facility] Medicine [id number] [facility] 2018-04-26 11:30:00 2018-04-26 11:30:00 [facility] Medicine [id number] [facility] 2018-04-25 10:32:00 2018-04-25 10:32:00 Outpatient [facility] Family Medicine [facility] Medicine [id number] [facility] 2018-04-13 14:39:00 2018-04-13 14:39:00 [facility] [id number] [facility] 2018-04-11 08:30:00 2018-04-11 08:30:00 Outpatient [facility] Family Medicine [facility] [id number] [facility] 2018-03-09 11:30:00 2018-03-09 11:30:00 Outpatient [facility] Medicine [facility] [id number] [facility] 2018-02-27 11:00:00 2018-02-27 11:00:00 Outpatient [facility] Medicine [facility] [id number] [facility] 2018-02-01 16:37:00 2018-02-01 16:37:00 Outpatient [facility] Medicine [facility] [id number] [facility] 2018-01-26 15:21:00 2018-01-26 15:21:00 Outpatient [facility] [id number] [facility] 2017-11-23 13:34:00 2017-11-23 13:34:00 Outpatient [facility] [id number] [facility] 2017-10-24 11:15:00 2017-10-24 11:15:00 Outpatient [facility] [id number] [facility] Results Test Description Test Time Test Comments Results Result Co [id number] 21:21:00* Test Item Value Reference Range Interpretation Comme nts YANA (test code = YANA) Please find result in Care Everywhere. Specimen: ?Stool - Rectum structure (body structure) Test Result Negative CommentsA negative result indicates a low likelihood that a colorectal cancer (CRC) or an advanced adenoma (adenomatous polyps with more advanced pre-malignant features) is present. The chance that a person with a negative Cologuard test has a colorectal cancer is less than 1 in 1500 (negative predictive value >99.9%) or has an advanced adenoma is less than 5.3% (negative predictive value 94.7%). These data are based on a prospective cross-sectional screening study of 10,000 individuals at average risk for colorectal cancer who were screened with both Cologuard and colonoscopy. (Vladimir Bacon al, N Engl J Med 2014;370(14):2211-3858) The normal value (reference range) for this assay is negative. COLOGUARD RE-SCREENING RECOMMENDATION: Periodic routine colorectal cancer screening is an important part of preventive healthcare for asymptomatic persons at average risk for colorectal cancer. Following a negative Cologuard result, the [place] [employer] and U.S. Multi-Society Task Force screening guidelines recommend a Cologuard re-screening interval of 3 years. References: [place] [employer] (ACS). Colorectal cancer prevention and early detection. [place], [place]: [place] [employer]; [updated 2015May 31]. https://www.cancer.org/ cancer/hjpog-mxpkqt-jli cer/detection-diagnosis -staging/acs-recommenda tions.html. Accessed October 07, 2017; Costa DK, Jennifer BENSON, López RATLIFF, Colorectal Cancer Screening: Recommendations for Physicians and Patients from the U.S. Multi-Society Task Force on Colorectal Cancer Screening, Am J Gastroenterology 2017; 112:5774-5880. TEST TYPE: Composite algorithmic analysis of stool DNA-biomarkers with hemoglobin immunoassay. ?Quantitative values of individual biomarkers are not reportable and are not associated with individual biomarker result reference ranges. PRECAUTIONS AND LIMITATIONS: Cologuard is intended for colorectal cancer screening of adults of either sex, 45 years or older, who are at average-risk for colorectal cancer (CRC). Cologuard has been approved for use by the U.S. FDA. Cologuard may produce a false negative or false positive result. A negative Cologuard test result does not guarantee the absence of CRC or advanced adenoma (pre-cancer). Patients with a negative Cologuard test result should be advised to continue participating in a colorectal cancer screening program. The screening interval for Cologuard is currently recommended at an interval of every 3 years by the [place] [employer] and U.S. Multi-Society Task Force. A false positive result occurs when Cologuard produces a positive result, even though a colonoscopy may not find colorectal cancer or precancerous polyps. The performance of Cologuard has been established in a cross sectional study (i.e., single point in time) of average-risk adults aged 50-84. Cologuard performance in patients ages 45 to 49 years was estimated by sub-group analysis of near-age groups. Cologuard performance data in a 10,000 patient pivotal study using colonoscopy as the reference method can be accessed at the following location: www.Omniata/resul ts. Additional description of the Cologuard test process, warnings and precautions can be found at www.cologuardtest.com. Rx only. Resulting Agency [employer] (CLIA #:[id number]) Specimen Collected: 06/25/20 19:25 Last Resulted: 07/01/20 16:21 Received From: Interlude Result Received: 07/21/20 10:50 Lab Interpretation (test code = 08787-9) [facility] Notes Date/Time Note Provider Source 2022-10-12 12:15:00 tYcYRQlAB9BQdRQmrYSU uUoc0uwlbxhA0 nXa7DjSx7V9X8KWqijdWsUzdiPs4JUw22 30-10-042:15:00 Images from the original note were not included.Venipuncture collection performed by clean technique on the left anticubitus. Total of 1 attempts were made. Slight pressure and a bandage/dressing were applied to the site(s). The patient experienced no complications. The following specimens were processed according to instructions and sent to [facility] laboratories per lab order on today: LT BLUE SST 1 RED LAV PPT DK GREEN (LiHep) DK GREEN (SodH) PICKARD DK BLUE (K2) DK BLUE (S) ACD Blood Culture NIPT/NTD ' [id number] OzgnIT1588-57-53Y31:26:37Nurse NoteTXT1.2.840.955270.1.13.104.2. 7.2.081383|[id number] for patient odkx57303-5Wqxon NoteLNUT[address] NdrrSlurftheuZtaefyqbtTXOP4915695 193HKOLRIOAUNCONBAACCFAIN4352-63- 05T12:26:371.2.840.832671.1.72.3. 15|1.2.840.002702.1.13.104.2.7.2. [id number] [facility] 2022-09-10 16:05:06 zCnDcL+1xC9zUovq7OxF PQr4MkhDcPMYd P6uPiLvUL7c/f1i7fJwJihFai6WEIEu26 30-09-036:05:06 Requested Prescriptions Refused Prescriptions Disp Refills GABAPENTIN 600 mg tablet [Pharmacy Med Name: GABAPENTIN 600MG] 90 tablet 2 Sig: TAKE 1 TABLET BY MOUTH EVERY MORNING AND TAKE 2 TABLETS EVENING Refused By: SHANNON BHAKTA Reason for Refusal: Request already responded to by other means (e.g. phone or fax) Refilled in a different encounter 47015-6Tyefvyzea encounter FushVH3303-06-00D70:05:28Telephon e encounter NoteTXT1.2.840.775825.1.13.104.2. 7.2.711918|[id number] for patient ejmk62252-5PhymMSIGBHJYUC[address] WdpgOiifdqxhwTfmadtcyfFMNC6552501 745CCQBASRNHHPTYAQIDDMGOI9629-41- 04T16:05:281.2.840.876857.1.72.3. 15|1.2.840.747475.1.13.104.2.7.2. [id number] [facility] 2022-09-10 16:03:17 ORXVCoPHjoAUnuG8f8cy nqNqlFlf1Qp5b s+x+d5cwsjP3/7K/WY9h66Xg3LXta9K64 30-09-036:03:17 Refilled in a different encounterRequested Prescriptions Refused Prescriptions Disp Refills BACLOFEN 20 mg tablet [Pharmacy Med Name: BACLOFEN 20MG] 180 tablet 0 Sig: TAKE 1 TABLET BY MOUTH TWICE DAILY WITHOUT REGARDS TO MEALS NEEDED Refused By: SHANNON BHAKTA Reason for Refusal: Request already responded to by other means (e.g. phone or fax) 09313-4Uyncdqsom encounter HbqzCT1736-39-82A98:03:42Telephon e encounter NoteTXT1.2.840.527300.1.13.104.2. 7.2.414193|[id number] for patient mooo12874-9MxdhAB908570396Mcxlsy Phillips [address]TXTX[address]77 198SNDNTTFJJFSRIVOBDZNZFP9369-11- 04T16:03:421.2.840.979573.1.72.3. 15|1.2.840.993841.1.13.104.2.7.2. [id number] Shannon Bhakta [facility] 2022-09-10 15:33:25 ECDfb1U02SGbAKDYIL5X KTMpit6Ns55FH bPSPQhN9JOLGWW58O90wuBPxI/22fYU49 30-09-035:33:25 Patient was requesting refills. Some can be completed in the future by PCP. Don't want patient to lose contact with PCP. 99631-8Vjeqczolk encounter WoveMI2442-32-97A97:36:49Telephon e encounter NoteTXT1.2.840.546069.1.13.104.2. 7.2.537629|[id number] for patient lnyr77121-3IhlsVLFCDAOGNZ[id number] 204TJSDVZVTOSONXNIJEVNJOT5642-72- 04T15:36:491.2.840.776723.1.72.3. 15|1.2.840.778765.1.13.104.2.7.2. [id number] [facility] 2022-08-17 08:41:05 DENNIS+8dJvackUqCmIGeE9l igT0DUaDHvePb JA/ur6t+50WW1bmrC0RPDuMx5AYzubM27 29-08-10T08:41:[address] Mayberry for approval. Refill requested is for 1 tab q am and [address] Mayberry had prescribed it as 1 tab tid. Medication was last filled by a different provider. 06244-5Mxjntqmvv encounter SvkzHC1418-74-68M52:41:51Telephon e encounter NoteTXT1.2.840.265305.1.13.104.2. 7.2.298833|[id number] for patient edll76227-2ZummZNTQIQOTFF[address]TXTX[address] 899EMBWYBFFNJJAJAFIUKXNQL2655-05- 11T08:41:511.2.840.394785.1.72.3. 15|1.2.840.783846.1.13.104.2.7.2. [id number] [facility] 2022-08-16 16:52:16 MGgdwC7/Zx+g9wcfp8Sd b89TaML5awhsY 1HJ3Vu+DSA+u+PtHqq3mxNU9kg8RzKX99 29-08-09T16:52:[address] Mayberry. This medication has never been prescribed by him, but she was being followed by another neurologist previously. 35294-7Drocdcexd encounter KbgpAY6606-55-04V58:59:16Telephon e encounter NoteTXT1.2.840.901620.1.13.104.2. 7.2.297985|[id number] for patient knss16945-2RzstAFIAWVGHPV06 [address]TXTX[address] 811COLGTTLCLDHZYLZEXCQRSH2414-55- 10T16:59:161.2.840.099348.1.72.3. 15|1.2.840.142358.1.13.104.2.7.2. [id number] [facility] 2022-08-16 15:29:33 XsKtTUaDazzdxU7fMQh1 5ErEG4v/tyLYB 5TePifSA+/zqafal201+c0vjBakJOQj22 29-08-09T15:29:[address] Mayberry for review and advise. Pt pharmacy is requesting refill of amitriptyline but I didn't see a record were you have ever filled it. Please advise..sign 74727-3Bjxmnqmul encounter WawpTL2147-07-31X15:31:07Telephon e encounter NoteTXT1.2.840.317005.1.13.104.2. 7.2.804474|[id number] for patient [id number] J Fleming [address]TX[address] 927DPFOQZPKHUVZOXXVULOLYX9959-75- 10T15:31:071.2.840.719901.1.72.3. 15|1.2.840.985500.1.13.104.2.7.2. [id number] Noa Hernández MA [facility] 2022-08-16 14:16:03 9Qyin29JyWtPHCwen1a5 C+6xYszrMVyJ4 Y64TdZHjdGo2bbFIWQzLIfao6+wm22914 29-08-09T14:16:03 Pharm calling pt need refillamitriptyline 50 mg [facility], [place] - [address]: Fpysevqcxfiurx signed by Jenny Escobar at 08/16/2022 2:16 PM WTW57051-7Jukzaqxrl encounter PyisHX2141-56-10J27:16:53Telephon e encounter NoteTXT1.2.840.066858.1.13.104.2. 7.2.606232|[id number] for patient [id number] [address] CawzBmvthvhcsJhwdjbjmbGHFL1824366 718CZGTKWFFEQHQZNNFHJSDXW2553-90- 10T14:16:531.2.840.900903.1.72.3. 15|1.2.840.133149.1.13.104.2.7.2. [id number] Jenny Escobar [facility]"
--- NOTE | 2023-03-11 11:47 | RAD REPORT ---
EXAM DESCRIPTION: CT - Ct Stroke Brain Wo Cont - 03/11/2023 11:40 am CLINICAL HISTORY: STROKE ALERT Headache, drowsiness, CVA symptomology COMPARISON: No comparisons TECHNIQUE: All CT scans are performed using dose optimization technique as appropriate and may inclu de automated exposure control or mA/KV adjustment according to patient size. FINDINGS: No intracranial hemorrhage, hydrocephalus or extra-axial fluid collection.Area of diminish ed density is seen adjacent to the left frontal horn measuring 19 mm, chronic in appearance.No areas of brain edema or evidence of midline shift. The paranasal sinuses and mastoids are clear. The calvarium is intact. IMPRESSION: No acute intracranial abnormality. The findings were discussed with Dr. Leigh in the ER On 03/11/2023 at 11:40 a.m. by telephone.
[2023-03-11 12:16] LABS: Protime INR 1.07
--- NOTE | 2023-03-11 12:18 | RAD REPORT ---
EXAM DESCRIPTION: RAD - Chest Single View - 03/11/2023 11:58 am CLINICAL HISTORY: difficulty walking Chest pain. COMPARISON: No comparisons FINDINGS: Portable technique limits examination quality. The lungs are emphysematous with small calcified granulomata present. No focal infiltrate. No dominan t mass. The heart is normal in size. No displaced fractures. IMPRESSION: No acute intrathoracic process suspected.
[2023-03-11 12:26] LABS: Hematocrit 38.4 % (36.0-45.0); Lymphocytes % 6.8 % (15.3-44.8); MPV 7.4 fL (7.6-11.3); Platelets 377 thou/uL (152-406); RBC Red Blood Cell Count 4.42 M/uL (3.86-4.86)
[2023-03-11 12:31] LABS: Albumin 3.6 g/dL (3.4-5.0); Bilirubin Direct 0.1 mg/dL (0-0.2); Bilirubin Indirect, Calculated 0.4 mg/dL (0.2-0.8); Bilirubin Total 0.5 mg/dL (0.2-1.0); Magnesium 1.9 mg/dL (1.6-2.4); Potassium 4.1 mEq/L (3.5-5.1); Protein, Total 7.6 g/dL (6.4-8.2); Troponin High Sensitivity 3.9 pg/mL (<58.9)
[2023-03-11 12:55] LABS: Blood Morphology Comment NOT SEEN (NOT SEEN); Platelet Estimate ADEQ; White Blood Cell Scan OK (OK)
--- NOTE | 2023-03-11 13:32 | RAD REPORT ---
EXAM DESCRIPTION: RAD - Elbow Left 3 View - 03/11/2023 1:22 pm CLINICAL HISTORY: Left elbow pain FINDINGS: No fracture or dislocation is seen. No bone or joint abnormality noted
--- NOTE | 2023-03-11 13:39 | EDPHYS ---
Physician Documentation [facility] Name: Lynn Strange Age: 67 yrs Sex: Female : 1955 Arrival Date: 03/11/2023 Time: 11:05 Bed 7 Private MD: ED Physician Paddy Leigh HPI: 03/11 13:08 This 67 yrs old Female presents to ER via Ambulatory with complaints of Sent ms3 by Dr Robertson. 13:08 67-year-old female with past medical history of hypertension, multiple sclerosis, ms3 restless leg syndrome presents to the emergency department for awaking with difficulty walking and generalized weakness. Patient states he was recently started on Macrobid for a urinary tract infection. Patient states she did fall striking her left elbow and the pain is a 5/10. Patient denies any alleviating or inciting factors. Historical: - Allergies: 11:10 No Known Allergies; aa5 - PMHx: 11:10 Hypertensive disorder; Multiple sclerosis; RLS; aa5 - PSHx: 11:10 Tubal ligation; Vaginal Hysterectomy; aa5 - Immunization history:: Adult Immunizations unknown. - Social history:: Smoking status: Patient reports the use of cigarette tobacco products. ROS: 13:08 Constitutional: Negative for fever, and chills. Neck: Negative for injury, pain, and ms3 swelling, Cardiovascular: Negative for chest pain, and palpitations. Respiratory: Negative for shortness of breath, cough, wheezing, and pleuritic chest pain, Abdomen/GI: Negative for abdominal pain, nausea, vomiting, diarrhea, and constipation, MS/Extremity: Negative for injury and deformity, Skin: Negative for injury, rash, and discoloration, 13:08 Neuro: Positive for gait disturbance, 13:08 All other systems are negative, Exam: 13:08 Radiologist reports: Negative acute ms3 13:08 Constitutional: This is a well developed, well nourished patient who is awake, alert, and in no acute distress. 13:08 Head/Face: Normocephalic, atraumatic. Neck: Trachea midline, no cervical lymphadenopathy. Supple, full range of motion without nuchal rigidity, or vertebral point tenderness. No Meningismus. Chest/axilla: Normal chest wall appearance and motion. Nontender with no deformity. Cardiovascular: Regular rate and rhythm with a normal S1 and S2. No gallops, murmurs, or rubs. Normal PMI, no JVD. No pulse deficits. Respiratory: Lungs have equal breath sounds bilaterally, clear to auscultation and percussion. No rales, rhonchi or wheezes noted. No increased work of breathing, no retractions or nasal flaring. Abdomen/GI: Soft, non-tender, with normal bowel sounds. No distension or tympany. No guarding or rebound. No evidence of tenderness throughout. Skin: Warm, dry with normal turgor. Normal color with no rashes, no lesions, and no evidence of cellulitis. 13:08 Musculoskeletal/extremity: Extremities: LLE weakness- normal per patient, 13:08 Neuro: Orientation: is normal, to person, place, time \T\ situation. Mentation: is normal, Memory: is normal, Cranial nerves: CN I not tested, CN II- XII are normal as tested, Cerebellar function: is grossly normal, normal finger to nose testing, the patient is unable to track left heel to right da sil[place], Sensation: is normal, 13:08 ECG was reviewed by the Attending Physician. ms3 Vital Signs: 11:08 BP 134 / 77; Pulse 111; Resp 18 S; Temp 99.1(O); Pulse Ox 93% on R/A; Weight 58.97 kg aa5 (R); Height 5 ft. 2 in. (R); 12:29 BP 121 / 78; Pulse 97; Resp 16; Pulse Ox 95% ; ko1 13:09 BP 133 / 83; Pulse 94; Resp 18; Pulse Ox 99% ; ko1 13:30 BP 125 / 75; Pulse 88; Resp 18; Pulse Ox 99% on R/A; rs5 11:08 Body Mass Index 23.78 (58.97 kg, 157.48 cm) aa5 MDM: 11:25 Patient medically screened. ms3 13:39 Differential diagnosis: CVA, TIA, Multiple sclerosis. Data reviewed: vital signs, ms3 nurses notes, and as a result, I will discharge patient. Consideration of Admission/Observation Escalation of care including admission/observation considered. Patient declines further workup to include MRI and would like to be discharged. Management of patient was discussed with the following: Manager Report: Dr Stevens- If CT negative, recommends 1 gm Solumedrol x 3 days.. Independent interpretation of the following test(s) in the Emergency Department CT Scan: My interpretation is CT Head without contrast reviewed does not reveal ICH. Care significantly affected by the following chronic conditions: Hypertension, Multiple sclerosis. Counseling: I had a detailed discussion with the patient and/or guardian regarding the historical points, exam findings, and any diagnostic results supporting the discharge/admit diagnosis, lab results, radiology results, the need for outpatient follow up, to return to the emergency department if symptoms worsen or persist or if there are any questions or concerns that arise at home. Refusal of service: The patient/guardian displays adequate decision making capability and despite a detailed discussion of alternatives, benefits, risks, and consequences refuses: Admission to the hospital for further work-up and treatment, MRI. ED course: Discussed necessity for MRIs and further workup with patient. Patient declined stating she will follow-up with neurology and schedule MRIs as an outpatient. Discussed risks of leaving to include and disability with patient and patient understands and accepts risks. Patient to follow-up with Dr. Stevens in 1 to 2 days. Patient understands agrees with plan. Questions were answered. Return precautions discussed include worsening symptoms, or any other concerns. Patient states her symptoms have improved at this time, patient is alert and orient x 4, no apparent distress, nontoxic-appearing, speaking full sentences. 03/11 11:23 Order name: Basic Metabolic Panel; Complete Time: 12:40 ms3 03/11 11:23 Order name: CBC with Diff; Complete Time: 13:07 ms3 03/11 11:23 Order name: Hepatic Function; Complete Time: 12:40 ms3 03/11 11:23 Order name: High Sensitivity Troponin; Complete Time: 12:40 ms3 03/11 11:23 Order name: Magnesium; Complete Time: 12:40 ms3 03/11 11:23 Order name: Protime (+inr); Complete Time: 12:24 ms3 03/11 11:23 Order name: Ptt, Activated; Complete Time: 12:24 ms3 03/11 12:55 Order name: CBC Smear Scan; Complete Time: 13:07 EDMS 03/11 11:23 Order name: CT Stroke Brain w/o Contrast; Complete Time: 12:24 ms3 03/11 11:23 Order name: Stroke CXR 1 View; Complete Time: 12:24 ms3 03/11 12:41 Order name: Elbow Left 3 View XRAY; Complete Time: 13:36 ms3 03/11 11:23 Order name: EKG; Complete Time: 11:24 ms3 03/11 11:23 Order name: Accucheck; Complete Time: 12:12 ms3 03/11 11:23 Order name: Cardiac monitoring; Complete Time: 11:56 ms3 03/11 11:23 Order name: EKG - Nurse/Tech; Complete Time: 12:12 ms3 03/11 11:23 Order name: IV Saline Lock; Complete Time: 12:12 ms3 03/11 11:23 Order name: Labs collected and sent; Complete Time: 12:12 ms3 03/11 11:23 Order name: NPO; Complete Time: 11:55 ms3 03/11 11:23 Order name: O2 Per Protocol; Complete Time: 11:55 ms3 03/11 11:23 Order name: O2 Sat Monitoring; Complete Time: 11:55 ms3 03/11 11:23 Order name: Stroke Swallow Screen; Complete Time: 12:12 ms3 EC:08 Rate is 100 beats/min. Rhythm is regular. QRS [place] is Normal. [place] interval is normal. ms3 QRS interval is normal. Clinical impression: Normal ECG. Interpreted by me. Reviewed by me. Administered Medications: No medications were administered Disposition Summary: 03/11/23 13:39 Discharge Ordered Notes: Location: Home ms3 Condition: Stable ms3 Diagnosis - Ataxia, unspecified ms3 - Multiple sclerosis ms3 Followup: ms3 - With: Yoni Stevens MD - When: 2 - 3 days - Reason: Recheck today's complaints Discharge Instructions: - Discharge Summary Sheet ms3 - Fall Prevention in the Home, Adult ms3 - Multiple Sclerosis ms3 - Ataxia ms3 Forms: - Medication Reconciliation Form ms3 - Thank You Letter ms3 - Antibiotic Education ms3 - Prescription Opioid Use ms3 - Patient Portal Instructions ms3 - Leadership Thank You Letter ms3 Signatures: Dispatcher [employer] Colette Lopez, RN RN aa5 Paddy Leigh DO DO ms3
--- NOTE | 2023-03-11 13:39 | ER ---
Nurse's Notes [facility] Name: Lynn Strange Age: 67 yrs Sex: Female : 1955 Arrival Date: 03/11/2023 Time: 11:05 Bed 7 Private MD: Diagnosis: Ataxia, unspecified;Multiple sclerosis Presentation: 03/11 11:08 Chief complaint: Patient states: sent by Dr. Robertson, has HX of MS and is normally weak aa5 and has garbles speech but this morning it was worse. Pt states "I felt like I was going to fall several times today". Pt is ambulatory with walker. Pt has current UTI and is taking Bactrim and Macrobid prescribed by Dr. Robertson. 11:08 Coronavirus screen: At this time, the client does not indicate any symptoms associated aa5 with coronavirus-19. Ebola Screen: Patient denies travel to an Ebola-affected area in the 21 days before illness onset. Initial Sepsis Screen: Does the patient meet any 2 criteria? HR > 90 bpm. Does the patient have a suspected source of infection? Yes: Dysuria/Frequency/Urgency/UTI. Risk Assessment: Do you want to hurt yourself or someone else? Patient reports no desire to harm self or others. Onset of symptoms was March 11, 2023. 11:08 Method Of Arrival: Ambulatory aa5 11:08 Acuity: FABIAN 3 aa5 Historical: - Allergies: 11:10 No Known Allergies; aa5 - PMHx: 11:10 Hypertensive disorder; Multiple sclerosis; RLS; aa5 - PSHx: 11:10 Tubal ligation; Vaginal Hysterectomy; aa5 - Immunization history:: Adult Immunizations unknown. - Social history:: Smoking status: Patient reports the use of cigarette tobacco products. Screenin:29 [facility] ED Fall Risk Assessment (Adult) History of falling in the last 3 months, ko1 including since admission No falls in past 3 months (0 pts) Confusion or Disorientation No (0 pts) Intoxicated or Sedated No (0 pts) Impaired Gait No (0 pts) Mobility Assist Device Used No (0 pt) Altered Elimination No (0 pt) Score/Fall Risk Level 0 - 2 = Low Risk Oriented to surroundings, Maintained a safe environment, Educated pt \\T\\ family on fall prevention, incl call for assistance when getting out of bed, Assessed \\T\\ reinforced patient's understanding of fall precautions, Provided non-skid footwear, Hourly rounding (assess needs \\T\\ fall precautionary measures) done, Used ambulatory aids as needed (educated on \\T\\ assisted with), Used gait belt as appropriate. Abuse screen: Denies threats or abuse. Denies injuries from another. Nutritional screening: No deficits noted. Tuberculosis screening: No symptoms or risk factors identified. Assessment: 11:10 General: Appears in no apparent distress. uncomfortable, Behavior is cooperative. Pain: rs5 Denies pain. Neuro: Level of Consciousness is awake, alert, obeys commands, Oriented to person, place, time, situation, Project Manager [employer] are equal bilaterally Moves all extremities. Gait is unsteady, Speech is normal, Facial symmetry appears normal, Pupils are PERRLA, Pupil Size: 3 mm Intact Reports dizziness, weakness. Cardiovascular: Heart tones S1 S2 present Patient's skin is warm and dry. Rhythm is regular. Respiratory: Airway is patent Respiratory effort is even, unlabored, Respiratory pattern is regular, symmetrical, Breath sounds are clear bilaterally. GI: Abdomen is flat, non-distended, Bowel sounds present X 4 quads. Abd is soft and non tender X 4 quads. : No signs and/or symptoms were reported regarding the genitourinary system. EENT: No signs and/or symptoms were reported regarding the EENT system. Derm: Skin is intact, Skin is dry, Skin is normal, Skin temperature is warm. Musculoskeletal: Range of motion: intact in all extremities. 12:05 Reassessment: No changes from previously documented assessment. rs5 12:30 Reassessment: Patient and/or family updated on plan of care and expected duration. Pain rs5 level reassessed. Patient is alert, oriented x 3, equal unlabored respirations, skin warm/dry/pink. 13:40 Reassessment: Pt states "I really want to leave, I have something I have to do today" rs5 provider notified. 13:41 Reassessment: Provider at bedside. rs5 Vital Signs: 11:08 BP 134 / 77; Pulse 111; Resp 18 S; Temp 99.1(O); Pulse Ox 93% on R/A; Weight 58.97 kg aa5 (R); Height 5 ft. 2 in. (R); 12:29 BP 121 / 78; Pulse 97; Resp 16; Pulse Ox 95% ; ko1 13:09 BP 133 / 83; Pulse 94; Resp 18; Pulse Ox 99% ; ko1 13:30 BP 125 / 75; Pulse 88; Resp 18; Pulse Ox 99% on R/A; rs5 11:08 Body Mass Index 23.78 (58.97 kg, 157.48 cm) aa5 ED Course: 11:07 Patient arrived in ED. mg5 11:08 Arm band placed on. aa5 11:12 Paddy Leigh DO is Attending Physician. ms3 11:20 Inserted saline lock: 20 gauge in right antecubital area, using aseptic technique. rs5 Blood collected. 11:22 Triage completed. aa5 11:26 Leatha Garza, RN is Primary Nurse. ko1 11:42 CT Stroke Brain w/o Contrast In Process Unspecified. EDMS 12:00 Stroke CXR 1 View In Process Unspecified. EDMS 12:29 Patient has correct armband on for positive identification. Placed in gown. Bed in low ko1 position. Call light in reach. Side rails up X 1. Client placed on continuous cardiac and pulse oximetry monitoring. NIBP monitoring applied. satellite project site monitor on. Door closed. Noise minimized. Lights dimmed. Warm blanket given. 13:23 Elbow Left 3 View XRAY In Process Unspecified. EDMS 13:38 Yoni Stevens MD is Referral Physician. ms3 13:45 No provider procedures requiring assistance completed. ko1 13:49 IV discontinued, intact, bleeding controlled, No redness/swelling at site. Pressure rs5 dressing applied. Administered Medications: No medications were administered Medication: 13:50 VIS not applicable for this client. rs5 Outcome: 13:39 Discharge ordered by . ms3 13:49 Discharged to home ambulatory, with walker rs5 13:49 Condition: stable 13:49 Discharge instructions given to patient, Instructed on discharge instructions, follow up and referral plans. Demonstrated understanding of instructions, follow-up care, 13:50 Patient left the ED. rs5 Signatures: Dispatcher [employer] EDMS Colette Weinberg RN RN aa5 Paddy Leigh DO DO ms3 Leatha Garza RN RN ko1 Remy Garcia RN RN rs5 Kayla Saldivar mg5 Corrections: (The following items were deleted from the chart) 13:48 12:29 General: Appears in no apparent distress. ko1 rs5 13:48 12:29 Pain: Denies pain. ko1 rs5
[2023-03-11 14:17] VITALS: BP 125/75; TEMP 99.1; O2SAT 99
--- NOTE | 2023-03-14 15:10 | EKG ---
Test Date: 2023-03-11 Test Time: 12:08:43 Car Construction Superintendent: HU MEASUREMENT RESULTS: Intervals: Rate: 100 FL: 158 QRSD: 88 QT: 358 QTc: 461 [place]: P: 37 FL: 158 QRS: -16 T: 60 INTERPRETIVE STATEMENTS: Normal sinus rhythm Normal ECG Compared to ECG 02/12/2012 10:25:25 No significant changes Electronically Signed On 03-14-23 15:02:18 MARINE SERVICES TECHNICIAN by Kulwinder Colon
== END ==
LOC: ER 11:05 → SUPCPDRO 11:05
DX: R27.0 Ataxia, unspecified (principal); G35 Multiple sclerosis
CPT/HCPCS: 36415; 70450; 71045; 80048; 80076; 83735; 84484; 85025; 85610; 85730; 93005

== ENCOUNTER 2023-11-10 10:57 | Day surgery (SDC) | payer OTHER ==
[2023-11-07 12:05] LABS: Absolute Eosinophils 0.2 K/uL (0-0.5); Absolute Lymphocytes (CBC) 2.9 K/uL (0.7-4.9); Absolute Monocytes 0.7 K/uL (0.1-1.3); Absolute Neutrophil 5.7 K/uL (1.8-8.0); Basophils % 0.4 % (0-1.3); Eosinophils % 1.6 % (0-4.4); Hematocrit 40.5 % (36.0-45.0); Hemoglobin 13.7 g/dL (12.0-15.0); Lymphocytes % 30.5 % (15.3-44.8); MCH 29.4 pg (27.0-35.0); MCHC 33.9 g/dL (32.0-36.0); MCV 86.8 fL (80-100); MPV 8.2 fL (7.6-11.3); Monocytes % 7.5 % (3.3-12.3); Platelets 367 thou/uL (152-406); RBC Red Blood Cell Count 4.67 M/uL (3.86-4.86); Red Cell Distribution Width 13.5 % (12.1-15.2)
[2023-11-07 12:16] LABS: Anion Gap 3.8 mEq/L (5.0-15.0); Potassium 3.8 mEq/L (3.5-5.1)
--- NOTE | 2023-11-09 13:04 | EKG ---
Test Date: 2023-11-07 Test Time: 11:12:54 Metal Model Maker: ASAEL MEASUREMENT RESULTS: Intervals: Rate: 92 SC: 182 QRSD: 78 QT: 358 QTc: 442 [employer]: P: 48 SC: 182 QRS: -15 T: 66 INTERPRETIVE STATEMENTS: Normal sinus rhythm Normal ECG Compared to ECG 03/11/2023 12:08:43 No significant changes Electronically Signed On 11-09-23 12:57:16 CDT by Rick Gutierrez
[2023-11-10] MEDS ORDERED: CEFAZOLIN SODIUM 2 GM/VIAL ONE (11:03)
[2023-11-10] MEDS ORDERED: Ringers Lactate 1,000 ML IV ONE (11:04)
[2023-11-10] MEDS ORDERED: LIDOCAINE HCL/EPINEPHRINE 20 ML MDV ONE (11:11)
[2023-11-10] MEDS ORDERED: ONDANSETRON 4 MG/2 ML VIAL ONE (11:41)
[2023-11-10] MEDS ORDERED: propofoL 200 MG/20 ML VIAL IV ONE (11:41)
[2023-11-10] MEDS ORDERED: FENTANYL CITR 100 MCG/2 ML ONE (11:41)
[2023-11-10] MEDS ORDERED: LIDOCAINE 2% MPF 5 ML VIAL ONE (11:41)
[2023-11-10] MEDS ORDERED: EPHEDRINE SULF 50 MG/ML VIAL ONE (12:21)
[2023-11-10] MEDS ORDERED: dexAMETHasone 10 MG/ML VIAL ONE (12:25)
[2023-11-10] MEDS ORDERED: Phenylephrine HCl 10 MG/ML 1 ML VIAL ONE (12:31)
[2023-11-10] MEDS ORDERED: NS 0.9% VIAL 10 ML ONE (12:31)
--- NOTE | 2023-11-10 13:25 | RAD REPORT ---
EXAM: Fluoroscopy use, Fluoroscopy <1 Hour HISTORY: SACRAL NEURO MOD COMPARISON: None FINDINGS: A total of 8 images were sent to PACS, during a fluoroscopically guided procedure. No radio logist was involved in protocoling or performance of the study, and no radiologist was present for the duration of the procedure. No interpretation of the saved images will be provided. Total fluoroscopy time: 1.2 minutes. IMPRESSION: Documentation of fluoroscopy use as above.
[2023-11-10 15:06] VITALS: BP 113/83; TEMP 97.4; O2SAT 96
--- NOTE | 2023-11-11 23:18 | OP ---
Date of Procedure: 11/10/2023 Surgeon: Valencia Gibson MD Tinsmith Helper: None. Preoperative Diagnoses: Urge urinary incontinence and stress incontinence. Postoperative Diagnoses: Urge urinary incontinence and stress incontinence. Procedures Performed: Stage I and II InterStim (complete InterStim system implantation with incision and implantation of tined quadripolar lead electrodes into the S3 foramen under fluoroscopic guidanc e for needle placement, subcutaneous implantation of sacral nerve neurostimulator and electronic anal ysis and programming). Anesthesia: General endotracheal. Specimens: No specimens. Complications: No complications. Drains: No drains. Estimated Blood Loss: Minimal. Findings: Right S3 and right buttock pocket were used for the system implantation. All leads were s trongly responsive with Bronson and plantar flexion of the great toe at 0.5 milliamps. After the patient presented with severe urge urinary incontinence, frequency, she was evaluated with urodynamic cystoscopy, negative for tumor. Urodynamics significant for urgency and decreased bladder capacity. She was started on the first and second line therapies and she did not have any response from them, so she was consented for a.m. office PNE and once this evaluation was performed, she had e xcellent results from this and wanted to proceed with InterStim implantation. Description Of Procedure: She was consented and brought to the OR in the preoperative area. 2 g of Ancef were given and preoperative consent was obtained. She was then taken back to the OR in the OR bed. General endotracheal anesthesia was induced while the patient was on the OR bed and she was identifie d and transferred to the OR bed using the OR protocol for prone position. Pillows were placed under her lower abdomen to flatten her sacrum and under her shins to allow the feet to dangle freely. The patient was prepped and draped in a sterile fashion using Betadine. The C-arm was draped and brought into AP position to provide fluoroscopic mapping of the sacral regio n. It was then moved into lateral position to image of the area from sacral promontory to the coccyx was identified. Local injection 1% lidocaine with epinephrine was given after surface markings were made 9 cm above t he coccyx in the midline and each cm from 9 to 13, 2 cm laterally. The markings were made as well an d these were infiltrated with 1% lidocaine with epinephrine. A foramen needle was then taken, introduced approximately 10.5 cm and 2 cm lateral to the midline fee ling for the foraminal margins until the S3 foramen was identified and penetrated. The depth of the foramen needle was confirmed and adjusted fluoroscopically with proper needle placement. Position wa s confirmed by identification of perineal bellowing and plantar flexion of the great toe using the ex ternal test stimulator. The foramen needle stylet was then removed and a bidirectional guide was placed and confirmed fluoros copically. The foramen needle was then removed. An incision was made peripherally into the bidirect ional guide through the fascial layer. The lead introducer sheath and the dilator were placed over t he guide and directed into the foramen to ensure the radiopaque marker of the lead introducer did not extend beyond the anterior edge of the sacrum. The dilator was unlocked and removed along with the guide. The lead was then placed through the introducer sheath to the first white line. The position was then checked and adjusted fluoroscopically. The lead was introduced until all 3 electrodes were visible below the sacrum. Each electrode was tested for location of the Bronson and plantar flexion of the great toe and the response was excellent and all these continuous fluoroscopy was used to rem ove the sheath and deploy the tines. Both AP and lateral pictures were taken and saved. Further incision was made into the subcutaneous tissues on the right buttock the iliac cre st and staying 4 fingerbreadths below that. After injecting 1% lidocaine with epinephrine and using a 15 blade to make the incision, subcutaneous tissues were dissected with the help of Bovie all the w ay to the level of the buttock, gluteal fascia, and hemostasis was secured as needed. Then, sufficie nt pocket was created for the neurostimulator with blunt dissection as well as monopolar. Tunneling tool was then used with a straw placed through the lead exit site subcutaneously to the incised pocke t site. The tunneling tool was then removed after the lead was fed through the straw and pulled out of the pocket site. The lead was cleansed off bodily fluids and dried. It was then inserted into e InterStim II neurostimulator and the metal bands were aligned and the blue tip clearly visible on t he distal portion of the header. The single set screw was then tightened with a hex wrench. The stimulator was then placed in the subcutaneous pocket and the etched side placed upwards. The ex cessive lead was wrapped around and under the neurostimulator. The programming head was placed over the implanted neurostimulator in a sterile cover to ensure adequate lead connection and the parameter s were within normal limits. Impedances were confirmed to be within normal limits and the wounds wer e irrigated with antibiotic solution and water and closed with the help of 3-0 Vicryl in a continuous running subcutaneous sutures and 4-0 Monocryl subcuticular sutures. Counts were correct. Dermabond and a gauze were placed on the incision. EBL was 5 mL. The patient was transferred to the recovery room in satisfactory condition. Using the clinician rpg programmer analyst, the generator was programmed. MADINA/SURAJ Voice ID: [id number] Report ID: [id number]
== END 2023-11-10 14:45 | disposition home or self-care (01) ==
LOC: OR 10:57
PROVIDERS: ATTEND Obstetrics & Gynecology
PROC: 0JH73BZ Insertion of Single Array Stimulator Generator into Back Subcutaneous Tissue and Fascia, Percutaneous Approach (ICD-10-PCS; 2023-11-10)
PROC: 01HY3MZ Insertion of Neurostimulator Lead into Peripheral Nerve, Percutaneous Approach (ICD-10-PCS; principal; 2023-11-10 11:30)
DX: N39.41 Urge incontinence (principal); N39.3 Stress incontinence (female) (male); I10 Essential (primary) hypertension; E78.00 Pure hypercholesterolemia, unspecified; F41.9 Anxiety disorder, unspecified; G35 Multiple sclerosis
CPT/HCPCS: 93005; 85025; 80048; 36415; 64590; 64561; A4216; J2704; J2371; J2001; J3010; J1100; J2405; J7120; C1778; C1767; 76000